=== PATIENT | male | born 1960 | race Two or more races ===

== ENCOUNTER 2025-08-18 05:54 | Inpatient (IN) | payer OTHER ==
[2025-08-18] VITALS (55 sets, daily range): BP systolic 87–154; BP diastolic 56–106; PULSE 92–122; RESP 8–34; TEMP 97.9–98.2; O2SAT 85–100
[~2025-08-18] VITALS: Ht 165.1 cm; Wt 81.4 kg
--- NOTE | 2025-08-18 06:24 | ED.PDOC ---
SOB-HPI HPI Comments 65 y/o M, BIBAiden, presents to the ED for CC of shortness of breath. EMS reports, patient is coming from home where he c/o shortness of breath x1day. Patient endorses, shortness of breath to worsen with light exertion. Upon arrival to the ED patient's O2 saturation is 98% on R.A and all VS are WNL, respirations are even and unlabored. At this time patient is hypotensive with a blood pressure of 92/69mmHg and BS is elevated at 356. Patient was transferred to ER bed 06 and care is ongoing at this time. Chief Complaint: Shortness of Breath Time Seen by MD: 06:24 Reviewed notes: Nurses Notes, [employer] Dealer Notes, Medications, Allergies Information Source: Patient, Emergency Med Personnel Mode of Arrival: EMS Severity: Moderate Timing: Days Duration: Since onset Context: With Light Exertion History of: None Prehospital treatment: None Modifying Factors: Nothing Associated Signs and Symptoms: None Past Medical History PAST MEDICAL HISTORY: Unknown Surgical History: Unknown Family History Family History: Unknown Social History Smoker: Non-Smoker Alcohol: Denies ETOH Use Drugs: Denies Drug Use Lives In: Home Constitutional: denies: chills, diaphoresis, fatigue, fever, malaise, sweats, weakness, others EENTM: denies: blurred vision, double vision, ear bleeding, ear discharge, ear drainage, ear pain, ear ringing, eye pain, eye redness, hearing loss, mouth kristine n, mouth swelling, nasal discharge, nose bleeding, nose congestion, nose pain, photophobia, tearing, throat pain, throat swelling, voice changes, others Respiratory: reports: shortness of breath; denies: cough, hemoptysis, orthopnea, SOB at rest, SOB with excertion, stridor, wheezing, others Cardiovascular: denies: chest pain, dizzy spells, diaphoresis, Dyspnea on exertion, edema, irregular heart beat, left arm pain, lightheadedness, palpitati ons, PND, syncope, others Gastrointestinal: denies: abdomen distended, abdominal pain, blood streaked bowels, constipated, diarrhea, dysphagia, difficulty swallowing, hematemesis, melena, nausea, poor appetite, poor fluid intake, rectal bleeding, rectal pain, vomiting, others Genitourinary: denies: burning, dysuria, flank pain, frequency, hematuria, incontinence, penile discharge, penile sore, pain, testicle pain, testicle swelling, urgency, others Neurological: denies: dizziness, fainting, headache, left sided numbness, left sided weakness, numbness, paresthesia, pre-existing deficit, right sided numbness, right sided weakness, seizure, speech problems, tingling, tremors, weakness, others Musculoskeletal: denies: back pain, gout, joint pain, joint swelling, muscle pain, muscle stiffness, neck pain, others Integumetry: denies: bruises, change in color, change in hair/nails, dryness, laceration, lesions, lumps, rash, wounds, others Allergic/Immunocompromised: denies: Difficulty Healing, Frequent Infections, Hives, Itching, others Hematologic/Lymphatic: denies: anemia, blood clots, easy bleeding, easy bruising, swollen glands, others Endocrine: denies: excessive hunger, excessive sweating, excessive thirst, excessive urination, flushing, intolerance to cold, intolerance to heat, unexplained weight gain, unexplained weight loss, others Psychiatric: denies: anxiety, bipolar disorder, depression, hopeless, panic disorder, schizophrenia, sleepless, suicidal, others All Other Systems: Reviewed and Negative Physical Exam General Appearance: Moderate Distress HEENT: Normal ENT Inspection, Pharynx Normal, TMs Normal Neck: Full Range of Motion, Non-Tender, Normal, Normal Inspection Respiratory: Chest Non-Tender, Lungs Clear, No Accessory Muscle Use, No Respiratory Distress, Normal Breath Sounds Cardiovascular: No Edema, No JVD, No Murmur, No Gallop, Normal Peripheral Pulses, Tachycardia Breast Exam: Deferred Gastrointestinal: No Organomegaly, Non Tender, No Pulsatile Mass, Normal Bowel Sounds, Soft Genitalia: Deferred Pelvic: Deferred Rectal: Deferred Extremities: No calf tenderness, Normal capillary refill, Normal inspection, Normal range of motion, Non-tender, No pedal edema Musculoskeletal : Apperance: Normal Neurologic: Alert, button puncher II-XII nml as Tested, No Motor Deficits, Normal Affect, Normal Mood, No Sensory Deficits Cerebellar Function: NOT DONE Reflexes: NOT DONE Skin: Dry, Normal Color, Warm Peripheral Pulses: 3+ Radial (R), 3+ Radial (L) Lymphatic: No Adenopathy Was a procedure done? Was a procedure done?: No Differential Dx Differential Diagnosis: Anxiety, Asthma, Bronchitis, CHF, COPD, Pneumonia, Sinusitis, Pharyngitis, URI X-Ray, Labs, Meds, VS Vital Signs Date Time Temp Pulse Resp B/P (MAP) Pulse Ox O2 Delivery O2 Flow Rate FiO2 08/18/25 09:10 104 25 91/63 (72) 95 08/18/25 08:56 106 08/18/25 08:10 103 24 91/67 (75) 95 08/18/25 07:47 107 08/18/25 07:10 96 Nasal Cannula* 2 08/18/25 07:10 98.0 106 25 99/69 (79) 96 98.0 08/18/25 07:10 106 25 96 Nasal Cannula* 2 08/18/25 07:10 25 96 Nasal Cannula* 2 08/18/25 06:53 108 92/69 (77) 08/18/25 06:26 98.1 112 22 92/69 (77) 97 98.1 08/18/25 06:26 114 22 95 Room Air* 0 21 08/18/25 06:03 98.9 68 18 100/68 98 98.9 08/18/25 05:59 111 Lab Test 08/18/25 08:30 08/18/25 08:11 08/18/25 06:37 Range/Units White Blood Count 13.8 H 4.4-10.8 10^3/uL Red Blood Count 5.16 4.5-5.90 10^6/uL Hemoglobin 17.0 13.5-17.5 g/dL Hematocrit 51.6 41.0-53.0 % Mean Corpuscular Volume 100.0 80.0-100.0 fL Mean Corpuscular Hemoglobin 33.0 H 28.0-32.0 pg Mean Corpuscular Hemoglobin Concent 33.0 32.0-36.0 g/dL Red Cell Distribution Width 13.6 11.8-14.3 % Platelet Count 191 140-450 10^3/uL Mean Platelet Volume 8.7 6.9-10.8 fL Neutrophils (%) (Auto) 84.4 H 37.0-80.0 % Lymphocytes (%) (Auto) 9.5 L 10.0-50.0 % Monocytes (%) (Auto) 5.7 0.0-12.0 % Eosinophils (%) (Auto) 0.0 0.0-7.0 % Basophils (%) (Auto) 0.4 0.0-2.0 % Neutrophils # (Auto) 11.7 H 1.6-8.6 10 ^3/uL Lymphocytes # (Auto) 1.3 0.4-5.4 10 ^3/uL Monocytes # (Auto) 0.8 0-1.3 10 ^3/uL Eosinophils # (Auto) 0 0-0.8 10 ^3/uL Basophils # (Auto) 0.1 0-0.2 10 ^3/uL Nucleated Red Blood Cells 0.0 % Prothrombin Time 14.0 H 9.3-11.8 sec Prothrombin Time INR 1.36 H 0.9-1.15 Activated Partial Thromboplast Time 26.8 24.5-34.5 SEC D-Dimer, Quantitative 1.35 H 0.0-0.49 mg/L FEU B-Type Natriuretic Peptide 963.53 0-100 pg/mL Sodium Level 136 136-145 mmol/L Potassium Level 5.6 *H 3.5-5.1 mmol/L Chloride Level 103 98-107 mmol/L Carbon Dioxide Level 10 L 20-31 mmol/L Anion Gap 23 H 5-15 Blood Urea Nitrogen 31 H 9-23 mg/dL Creatinine 2.90 H 0.700-1.30 mg/dL Glomerular Filtration Rate Calc 23 >90 mL/min BUN/Creatinine Ratio 10.7 10.0-20.0 Serum Glucose 339 H 74-106 mg/dL Calcium Level 8.8 8.7-10.4 mg/dL Troponin I High Sensitivity > 88138 *H </=54 ng/L Beta-Hydroxybutyric Acid 0.600 H < 0.4 mmol/L POC Glucose 356 H 70-106 mg/dl Current Medications Medications (Trade) Dose Ordered Sig/Letitia Route Start Time Stop Time Status Last Admin Sodium Chloride 1,000 ml @ 1,000 mls/hr Q1H ONCE IV 08/18/25 07:00 08/18/25 07:59 DC 08/18/25 06:52 Sodium Chloride 1,000 ml @ 1,000 mls/hr Q1H ONCE IV 08/18/25 07:00 08/18/25 07:59 DC 08/18/25 07:03 Sodium Chloride 1,000 ml @ 150 mls/hr Q6H40M ONCE IV 08/18/25 07:00 08/18/25 13:39 08/18/25 07:55 Insulin Human Regular (InsuLIN R) 3 units ONCE ONCE IV 08/18/25 07:00 08/18/25 07:02 DC 08/18/25 07:08 Heparin Sodium (Porcine) 5,000 units ONCE ONCE IV 08/18/25 09:00 08/18/25 09:01 DC 08/18/25 09:00 Atorvastatin Calcium (Lipitor) 80 mg ONCE ONCE PO 08/18/25 09:15 08/18/25 09:16 DC 08/18/25 09:14 Aspirin 325 mg ONCE ONCE PO 08/18/25 09:15 08/18/25 09:16 DC 08/18/25 09:14 Patient alert. Came in because of generalized fatigue. Vitals stable. Saturation pristine. Tachycardia. Establish intravenous access Was given fluids Blood sugar elevated. Was given insulin. No leg swelling. WBC elevated. Cardiac marker elevated. Beta hydroxybutyric acid elevated. Patient does not take care himself. He has been possibly having infarction for many weeks. He is very sick. Anion gap elevated. Potassium elevated. Creatinine elevated. Acute renal failure. He is critical. Explained to the family he is very sick. He will possibly going to shot. Was given Lasix. Was given calcium. Cardiology consultation for stat catheterization. Continue to monitor. Time of 1ST Reevaluation: 06:54 Reevaluation 1ST: Unchanged Patient Education/Counseling: Diagnosis, Treatment Family Education/Counseling: No Family Present SEPSIS Sepsis Screen Date sepsis recognized/suspect: Aug 18, 2025 Time Sepsis recognized/suspect: 0558 Recent Procedure: No On Antibiotic Therapy: No Respiratory Rate >20: No Heart Rate >90: No Temp<36 C (96.8 F) or >38.3 C: No SBP <90 or MAP <65 mmHG: No New Acute Mental Status Change: No Is the patient on CPAP, BIPAP,: No Physician Orders Sodium Chloride 0.9% (08/18/25 07:00) Chest Portable (08/18/25 09:02) Cl Left Heart Cath (08/18/25 09:24) Furosemide Injection (Lasix Injection) (08/18/25 09:45) Calcium Gluc 1,000mg/50ml-Ns (08/18/25 09:45) Vital Signs Date Time Temp Pulse Resp B/P (MAP) Pulse Ox O2 Delivery O2 Flow Rate FiO2 08/18/25 09:10 104 25 91/63 (72) 95 08/18/25 08:56 106 08/18/25 08:10 103 24 91/67 (75) 95 08/18/25 07:47 107 08/18/25 07:10 96 Nasal Cannula* 2 28 08/18/25 07:10 98.0 106 25 99/69 (79) 96 98.0 08/18/25 07:10 106 25 96 Nasal Cannula* 2 28 08/18/25 07:10 25 96 Nasal Cannula* 2 28 08/18/25 06:53 108 92/69 (77) 08/18/25 06:26 98.1 112 22 92/69 (77) 97 98.1 08/18/25 06:26 114 22 95 Room Air* 0 21 08/18/25 06:03 98.9 68 18 100/68 98 98.9 08/18/25 05:59 111 Laboratory Tests Test 08/18/25 08:30 White Blood Count 13.8 10^3/uL (4.4-10.8) H Medications Medications Dose Ordered Sig/Letitia Route Start Time Stop Time Status Last Admin Dose Admin Aspirin 325 mg ONCE ONCE PO 08/18/25 09:15 08/18/25 09:16 DC 08/18/25 09:14 Atorvastatin Calcium 80 mg ONCE ONCE PO 08/18/25 09:15 08/18/25 09:16 DC 08/18/25 09:14 Heparin Sodium (Porcine) 5,000 units ONCE ONCE IV 08/18/25 09:00 08/18/25 09:01 DC 08/18/25 09:00 Insulin Human Regular 3 units ONCE ONCE IV 08/18/25 07:00 08/18/25 07:02 DC 08/18/25 07:08 Sodium Chloride 1,000 ml @ 150 mls/hr Q6H40M ONCE IV 08/18/25 07:00 08/18/25 13:39 08/18/25 07:55 Sodium Chloride 1,000 ml @ 1,000 mls/hr Q1H ONCE IV 08/18/25 07:00 08/18/25 07:59 DC 08/18/25 06:52 Sodium Chloride 1,000 ml @ 1,000 mls/hr Q1H ONCE IV 08/18/25 07:00 08/18/25 07:59 DC 08/18/25 07:03 Departure 1 Departure Time of Disposition: 08:21 Impression: Primary Impression: Uncontrolled diabetes mellitus Qualified Codes: E13.65 - Other specified diabetes mellitus with hyperglycemia Additional Impressions: Tachycardia Hypotension Qualified Codes: I95.9 - Hypotension, unspecified NSTEMI (non-ST elevated myocardial infarction) Hyperkalemia Acute renal failure Qualified Codes: N17.1 - Acute kidney failure with acute cortical necrosis Disposition: ADMITTED INPATIENT Admit to: ICU Condition: Guarded Critical Care Note Critical Care Time?: Yes (90 min-critical care time only) Stability Stability form required: No Heart Score Heart Score: Heart Score Response (Comments) Value History Slightly Suspicious 0 EKG Normal 0 Age >65 2 Risk Factors >3 or Hx ASHD 2 Troponin >3 x's Normal limit 2 Total 6 I personally scribed for CROW HIRSCH MD ([email or web address]) on 08/18/25 at 06:24. Electronically submitted by Trudy Matias ([email or web address]). I personally scribed for CROW HIRSCH MD ([email or web address]) on 08/18/25 at 07:24. Electronically submitted by Trudy Matias [email or web address]). CROW HIRSCH MD Aug 18, 2025 06:24
[2025-08-18] MEDS: SODIUM CHLORIDE 0.9% 1,000 ML IV ONE ×3 (06:52→07:55)
[2025-08-18] MEDS: InsuLIN REG 1unit/0.01ml Soln (100units/ml) IV ONE (07:08)
--- NOTE | 2025-08-18 07:09 | ECG ---
[facility] Test Date: 2025-08-18 Test Time: 05:59:31 Pat Name: BRIGIDA SHAW Department: [facility] ED Patient ID: [facility]-[id number] Room: [address] [place] [address] Gender: M Territory Account Executive: : 1960 Requested By: CROW HIRSCH Order Number: [id number] Reading MD: Cedric Cordoba Measurements Intervals [place] Rate: 111 P: 0 [place]: 0 QRS: -74 QRSD: 153 T: 90 QT: 325 QTc: 442 Interpretive Statements Junctional tachycardia Nonspecific IVCD with LAD Electronically Signed On 08-22-2025 22:01:21 PDT by Cedric Cordoba Please click the below link to view image of tracing.
[2025-08-18 08:41] LABS: Anion Gap 23 (5-15); Chloride 103 mmol/L (98-107); Sodium 136 mmol/L (136-145)
[2025-08-18 08:42] LABS: Calcium 8.8 mg/dL (8.7-10.4)
[2025-08-18 08:46] LABS: Hematocrit 51.6 % (41.0-53.0); Hemoglobin 17.0 g/dL (13.5-17.5); Mean Corpuscular Hemoglobin 33.0 pg (28.0-32.0); Mean Corpuscular Volume 100.0 fL (80.0-100.0); Nucleated Red Blood Cells % 0.0 %
[2025-08-18 08:47] LABS: BUN/Creatinine Ratio 10.7 (10.0-20.0); Blood Urea Nitrogen 31 mg/dL (9-23); Carbon Dioxide 10 mmol/L (20-31); Glucose 339 mg/dL (74-106)
[2025-08-18 08:49] LABS: Potassium 5.6 mmol/L (3.5-5.1)
[2025-08-18] MEDS: HEPARIN SODIUM (PORCINE) 5000 UNITS/ML 1ML VIAL IV ONE (09:00)
[2025-08-18] MEDS: CLOPIDOGREL BISULFATE 75 MG TAB PO ONE (09:13)
[2025-08-18] MEDS: ATORVASTATIN 20 MG TAB PO ONE (09:14)
[2025-08-18 09:20] LABS: INR 1.36 (0.9-1.15); Partial Thromboplastin Time 26.8 SEC (24.5-34.5); Prothrombin Time 14.0 sec (9.3-11.8)
[2025-08-18] MEDS ORDERED: DEXTROSE (50%) 50ML SYRG IV PRN ×3 (09:30→11:30)
[2025-08-18] MEDS ORDERED: NITROGLYCERIN 0.4 MG SL TAB SL PRN ×5 (09:30→11:45)
[2025-08-18] MEDS ORDERED: MORPHINE SULFATE 4 MG/ML SYR/VIAL IV PRN (09:30)
--- NOTE | 2025-08-18 09:31 | DVH ---
AP portable chest CLINICAL INDICATION: chest pain FINDINGS: Heart size is normal. Pulmonary vascular markings are increased IMPRESSION: 1. Findings suggest pulmonary edema
[2025-08-18] MEDS: ANGIOMAX 250 MG VIAL IV ONE (09:33)
[2025-08-18] MEDS: fentaNYL CITRATE 100 MCG/2 ML VL ONE (09:34)
[2025-08-18] MEDS: VERAPAMIL 2.5MG/ML INJ 2ML VIAL IV ONE (09:34)
[2025-08-18] MEDS: MIDAZOLAM HCL 2MG/2ML 2ml VIAL (1mg/ml) ONE (09:34)
[2025-08-18] MEDS: LIDOCAINE 2%HCL (LOCAL ANESTH.) INJ 20ML MDV ONE (09:35)
[2025-08-18] MEDS: IODIXANOL 320MG/ML 100ML BTL IV ONE (09:35)
[2025-08-18] MEDS: SODIUM CHL 0.9% 50 ML ONE (09:35)
[2025-08-18] MEDS: FUROSEMIDE 20 MG/2 ML VIAL IV ONE (09:39)
[2025-08-18] MEDS: CALCIUM GLUC 1,000mg/50ml-NS 50 ML IV ONE (09:39)
--- NOTE | 2025-08-18 09:39 | ECG ---
[facility] Test Date: 2025-08-18 Test Time: 08:56:56 Pat Name: BRIGIDA SHAW Department: [facility] ED Patient ID: [id number] Room: [address] [place] [address] Gender: M Gemologist: AGNES : 1960 Requested By: MICHELLE VIGIL Order Number: [id number] Reading MD: Cedric Cordoba Measurements Intervals [place] Rate: 106 P: 0 [place]: 0 QRS: -65 QRSD: 151 T: 136 QT: 407 QTc: 541 Interpretive Statements Junctional tachycardia Nonspecific IVCD with LAD Borderline T abnormalities, lateral leads Electronically Signed On 08-22-2025 22:01:28 PDT by Cedric Cordoba Please click the below link to view image of tracing.
--- NOTE | 2025-08-18 09:47 | DVHHP2 ---
History of Present Illness Reason for Visit: weakness History of Present Illness 66-year-old English-speaking male with a past medical history of diabetes mellitus, hypertension, and prior ICU admission with intubation 34 years ago for an unclear condition (possibly after a bee sting, per son) presents with concern for cardiac symptoms and left-sided weakness. 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 Around 11 AM, he began sweating profusely and experienced sudden onset of left arm weakness, which progressed to generalized left-sided body weakness. Despite attempting to rest at home, his symptoms persisted. He remained mostly in bed throughout the day and began developing shortness of breath around the same time (11 AM). By 10 PM, he experienced increased difficulty breathing. His and son decided to bring him to the hospital for evaluation the following morning around 5 AM. The patient denied chest pain, cough, or fever but did report a sensation of chest pressure and pain that he described more like a muscle spasm. He experienced associated diaphoresis and fatigue during the episode. He also expressed concern due to a family history of multiple relatives including his siblings and grandmother who had heart attacks. The patient was unable to provide a complete history due to language barrier and altered condition; information was primarily obtained from his son. In the ED, the patient was noted to be hypotensive (BP 92/69) and tachycardic. Initial labs were significant for WBC 13.8, potassium 5.6, creatinine 2.90, glucose 339, and a markedly elevated troponin >25,000. EKG showed no STEMI but indicated conduction abnormalities (heart block). Given the clinical presentation, vital signs, family history, and elevated troponin, cardiology was consulted and the patient was taken emergently to the dental laboratory technician apprentice. Following the procedure, he will be admitted to [facility] for monitoring. A CT brain was ordered due to focal left arm weakness, and a VQ scan was requested due to elevated D-dimer. Renal consultation is also pending for management of acute kidney injury. Lipid panel, hemoglobin A1c, and other labs were sent. The patient is currently post-cath awaiting further management in the [facility]. Past Medical History See HPI above Past Surgical History See HPI above Family History Reviewed, non-contributory to the management of this case. Past Social History The patient lives at home, denies smoking, alcohol or illicit drugs abuse. Review of Systems Constitutional: Yes: Weakness; No: Fever, Chills, Sweats, Malaise, Other Eyes: No: Pain, Vision change, Conjunctivae inflammation, Eyelid inflammation, Other, Redness ENT: No: Ear pain, Ear discharge, Nose pain, Nose discharge, Nose congestion, Mouth pain, Mouth swelling, Throat pain, Throat swelling, Other Respiratory: Shortness of breath; No: Cough, Dry, SOB with excertion, Wheezing, Hemoptysis, Pleuritic Pain, Sputum, Wheezing, Other Cardiovascular: No: Chest Pain, Palpitations, Orthopnea, Paroxysmal Noc. Dyspnea, Edema, Lt Headedness, Other Gastrointestinal: No: Nausea, Vomiting, Abdominal Pain, Diarrhea, Constipation, Melena, Hematochezia, Other Genitourinary: No Dysuria, No Frequency, No Incontinence, No Hematuria, No Retention, No Other Musculoskeletal: No: other, neck pain, shoulder pain, arm pain, back pain, hand pain, leg pain, foot pain Skin: No: Rash, Lesions, Jaundice, Bruising, Other Neurological: Weakness; No: Numbness, Incoordination, Change in speech, Confusion, Seizures, Other Allergies: Coded Allergies: NO KNOWN ALLERGIES (Unverified , 08/18/25) Exam Vital Signs Vital Signs Date Time Temp Pulse Resp B/P (MAP) Pulse Ox O2 Delivery O2 Flow Rate FiO2 08/18/25 09:10 104 25 91/63 (72) 95 08/18/25 07:10 Nasal Cannula* 2 28 08/18/25 07:10 98.0 98.0 General Appearance: Alert, Oriented X3, mild distress HEENT: Atraumatic, PERRLA, EOMI, Mucous membr. moist/pink Respiratory: Other (Diminished lung sounds throughout) Cardiovascular: Regular rate, Normal S1, Normal S2, No murmurs Abdominal: Normal bowel sounds, Soft, No tenderness, No hepatospenomegaly, No masses Extremities: No clubbing, No cyanosis, No edema, Normal pulses, No ten derness/swelling Skin: No rashes, No breakdown, No significant lesion Neuro: Other (Neuro nonfocal) Psych/Mental Status: Mental status NL, Mood NL Labs/Xrays I reviewed labs, imaging CT scan abdomen pelvis, EKG and all diagnostic studies on this patient from ED records and the medical chart Labs Test 08/18/25 08:30 08/18/25 08:11 08/18/25 06:37 Range/Units White Blood Count 13.8 H 4.4-10.8 10^3/uL Red Blood Count 5.16 4.5-5.90 10^6/uL Hemoglobin 17.0 13.5-17.5 g/dL Hematocrit 51.6 41.0-53.0 % Mean Corpuscular Volume 100.0 80.0-100.0 fL Mean Corpuscular Hemoglobin 33.0 H 28.0-32.0 pg Mean Corpuscular Hemoglobin Concent 33.0 32.0-36.0 g/dL Red Cell Distribution Width 13.6 11.8-14.3 % Platelet Count 191 140-450 10^3/uL Mean Platelet Volume 8.7 6.9-10.8 fL Neutrophils (%) (Auto) 84.4 H 37.0-80.0 % Lymphocytes (%) (Auto) 9.5 L 10.0-50.0 % Monocytes (%) (Auto) 5.7 0.0-12.0 % Eosinophils (%) (Auto) 0.0 0.0-7.0 % Basophils (%) (Auto) 0.4 0.0-2.0 % Neutrophils # (Auto) 11.7 H 1.6-8.6 10 ^3/uL Lymphocytes # (Auto) 1.3 0.4-5.4 10 ^3/uL Monocytes # (Auto) 0.8 0-1.3 10 ^3/uL Eosinophils # (Auto) 0 0-0.8 10 ^3/uL Basophils # (Auto) 0.1 0-0.2 10 ^3/uL Nucleated Red Blood Cells 0.0 % Prothrombin Time 14.0 H 9.3-11.8 sec Prothrombin Time INR 1.36 H 0.9-1.15 Activated Partial Thromboplast Time 26.8 24.5-34.5 SEC D-Dimer, Quantitative 1.35 H 0.0-0.49 mg/L FEU B-Type Natriuretic Peptide 963.53 0-100 pg/mL Sodium Level 136 136-145 mmol/L Potassium Level 5.6 *H 3.5-5.1 mmol/L Chloride Level 103 98-107 mmol/L Carbon Dioxide Level 10 L 20-31 mmol/L Anion Gap 23 H 5-15 Blood Urea Nitrogen 31 H 9-23 mg/dL Creatinine 2.90 H 0.700-1.30 mg/dL Glomerular Filtration Rate Calc 23 >90 mL/min BUN/Creatinine Ratio 10.7 10.0-20.0 Serum Glucose 339 H 74-106 mg/dL Calcium Level 8.8 8.7-10.4 mg/dL Troponin I High Sensitivity > 80931 *H </=54 ng/L Beta-Hydroxybutyric Acid 0.600 H < 0.4 mmol/L POC Glucose 356 H 70-106 mg/dl SEPSIS Sepsis Screen Date sepsis recognized/suspect: Aug 18, 2025 Time Sepsis recognized/suspect: 628 Recent Procedure: No On Antibiotic Therapy: No Respiratory Rate >20: No Heart Rate >90: No Temp<36 C (96.8 F) or >38.3 C: No SBP <90 or MAP <65 mmHG: No New Acute Mental Status Change: No Is the patient on CPAP, BIPAP,: No Physician Orders Sodium Chloride 0.9% (08/18/25 07:00) Chest Portable (08/18/25 09:02) Cl Left Heart Cath (08/18/25 09:24) Furosemide Injection (Lasix Injection) (08/18/25 09:45) Calcium Gluc 1,000mg/50ml-Ns (08/18/25 09:45) Beta-Hydroxybutyrate (08/18/25 09:25) Glucose Blood (Accu-Chek Comfort Curve T (08/18/25 12:00) Mild Sliding Scale Npo - Q6hr (08/18/25 12:00) Dextrose 50% Syringe (08/18/25 09:30) *[facility] (08/18/25 09:25) Kidney (08/18/25 09:25) Nm Vq Scan (08/18/25:25) Head Without Contrast (08/18/25 09:25) Lipid Panel (08/18/25 09:25) Hemoglobin A1c (08/18/25 09:25) Admit (08/18/25 09:25) Code Status (08/18/25 09:25) Vital Signs .PER UNIT PROTOCOL (08/18/25 09:25) Employee Benefits Coordinator (08/18/25 09:25) May Elevate Hob ____ Degrees (08/18/25 09:25) Aspirin Tablet (08/18/25 10:00) Clopidogrel Bisulfate (Plavix) (08/18/25 10:00) Lipitor 40mg Hs Hi-Intensity (08/18/25 22:00) Morphine Sulfate Injection (08/18/25 09:30) Docusate Sodium Capsule (Colace Capsule) (08/18/25 10:00) Pulse Oximeter Check (08/18/25 09:25) Complete Blood Count (08/19/25 04:00) Complete Blood Count (08/18/25 04:00) Prothrombin Time W/ Inr (08/18/25:) Echo 2d Mode Cardiac Dop (08/18/25:25) Nitroglycerin Sublingual (Ntrostat Subli (08/18/25 09:30) Magnesium (08/18/25 09:25) Electrocardigram (08/18/25 09:25) Troponin-I Hs (08/18/25 09:25) Cardiac Rehabilitation - Outpa (08/18/25 ) Nitroglycerin Sublingual (Ntrostat Subli (08/18/25 09:30) Stat Ekg For Chest Pain (08/18/25:) Notify Of Changes From Base (08/18/25:25) Servicenow Administrator Developer For 24 Hours (08/18/25 09:25) Emergency Dysrhythmia Protocol (08/18/25 09:25) Rhythm Strips Once Every Shift (08/18/25 09:25) Oxygen By Nasal Cannula (08/18/25 09:25) Electrocardigram (08/18/25 10:25) Troponin-I Hs (08/18/25 10:25) Troponin-I Hs (08/18/25 12:25) Vital Signs Date Time Temp Pulse Resp B/P (MAP) Pulse Ox O2 Delivery O2 Flow Rate FiO2 08/18/25 09:10 104 25 91/63 (72) 95 08/18/25 08:56 106 08/18/25 08:10 103 24 91/67 (75) 95 08/18/25 07:47 107 08/18/25 07:10 96 Nasal Cannula* 2 28 08/18/25 07:10 98.0 106 25 99/69 (79) 96 98.0 08/18/25 07:10 106 25 96 Nasal Cannula* 2 28 08/18/25 07:10 25 96 Nasal Cannula* 2 28 08/18/25 06:53 108 92/69 (77) 08/18/25 06:26 98.1 112 22 92/69 (77) 97 98.1 08/18/25 06:26 114 22 95 Room Air* 0 21 08/18/25 06:03 98.9 68 18 100/68 98 98.9 08/18/25 05:59 111 Laboratory Tests Test 08/18/25 08:30 White Blood Count 13.8 10^3/uL (4.4-10.8) H Medications Medications Dose Ordered Sig/Letitia Route Start Time Stop Time Status Last Admin Dose Admin Aspirin 325 mg ONCE ONCE PO 08/18/25 09:15 08/18/25 09:16 DC 08/18/25 09:14 325 MG Atorvastatin Calcium 80 mg ONCE ONCE PO 08/18/25 09:15 08/18/25 09:16 DC 08/18/25 09:14 80 MG Heparin Sodium (Porcine) 5,000 units ONCE ONCE IV 08/18/25 09:00 08/18/25 09:01 DC 08/18/25 09:00 5,000 UNITS Insulin Human Regular 3 units ONCE ONCE IV 08/18/25 07:00 08/18/25 07:02 DC 08/18/25 07:08 3 UNITS Sodium Chloride 1,000 ml @ 150 mls/hr Q6H40M ONCE IV 08/18/25 07:00 08/18/25 13:39 08/18/25 07:55 150 MLS/HR Sodium Chloride 1,000 ml @ 1,000 mls/hr Q1H ONCE IV 08/18/25 07:00 08/18/25 07:59 DC 08/18/25 06:52 1,000 MLS/HR Sodium Chloride 1,000 ml @ 1,000 mls/hr Q1H ONCE IV 08/18/25 07:00 08/18/25 07:59 DC 08/18/25 07:03 1,000 MLS/HR Assessment/Plan Assessment/Plan Acute Coronary Syndrome (NSTEMI with possible heart block) trop elevated >57203, ekg no st segment changes seen pt to go to dental laboratory technician apprentice/Initiate CP protocol Cards consult stat DR. Bah/Halle cisneros at bedside will take to dental laboratory technician apprentice ordered Aspirin, atorvastatin, plavix by cards in er ordered nitro as needed for chest pain Oxygen as needed ordered heparin drip ordered Lipid panel,and hemoglobin a1c hold hypotensive agents since bp is low ordered echo fu results Lifestyle modification ordered morphine as needed for pain Admit to [facility] for post-procedure monitoring Telemetry, serial troponins, EKGs Cardiology to follow acute Hypotension BP 92/69 on arrival Monitor MAP, ensure adequate perfusion post-cath Consider fluids or vasopressors if needed Acute Kidney Injury Creatinine 2.90 Renal consult requested Monitor renal function, avoid nephrotoxic meds Hydration protocol post-cath acute Hyperkalemia K 5.6 Monitor BMP, treat if rises further consider Kayexalate, insulin/dextrose if needed Check for EKG changes acute Hyperglycemia / Diabetes r/o dka Glucose 339 HbA1c pending and beta OH Start sliding scale insulin Monitor FSBS q6h for now while npo acute Left-Sided Weakness Sudden onset left arm and body weakness during event CT brain ordered to r/o acute stroke Neuro exam to be done post-cath acute Leukocytosis can be acute phase reactant WBC 13.8 Monitor for infection No clear source identified at this time Blood cultures if febrile Language Barrier / Communication Support English-speaking only Communication via son Shyam Mtz Consider box toe cementer services for direct patient communication chronic problems Diabetes mellitus Hypertension Prior intubation / ICU stay (status-post mechanical ventilation) Family history of CAD FEN / PPx: Fluids: IV hydration post-cath; monitor volume status Electrolytes: Monitor BMP QAM, replete as needed Nutrition: cardiac diabetic diet when cleared for PO intake DVT Prophylaxis: SCDs or pharmacologic prophylaxis if no bleeding risk GI Prophylaxis: PPI for stress ulcer prevention DISPOSITION: Admit to [facility] for post-cardiac catheterization monitoring Plan discussed with: Patient, Son My Orders Orders - MICHELLE VIGIL DNP Procedure Category Date Status Time Beta-Hydroxybutyrate LAB 08/18/25 Verified 09:25 Glucose Blood PHA 08/18/25 Verified (Accu-Chek Comfort 12:00 Mild Sliding Scale PHA 08/18/25 Verified Npo - Q6hr 12:00 Dextrose 50% Syringe PHA 08/18/25 Verified 09:30 *[facility] CONS 08/18/25 Verified -[place] 09:25 Kidney US 08/18/25 Verified 09:25 Nm Vq Scan NM 08/18/25 Verified 09:[address] 08/18/25 Verified 09:25 Lipid Panel LAB 08/18/25 Verified 09:25 Hemoglobin A1c LAB 08/18/25 Verified 09:25 Admit ADMIT 08/18/25 Verified 09: Code Status CODE 08/18/25 Verified 09:25 Vital Signs [facility] 08/18/25 Verified 09:25 Employee Benefits Coordinator [facility] 08/18/25 Verified 09:25 May Elevate Hob ____ ARIE 08/18/25 Verified Degrees 09:25 Aspirin Tablet PHA 08/18/25 Verified 10:00 Clopidogrel Bisulfate PHA 08/18/25 Verified (Plavix) 10:00 Lipitor 40mg Hs PHA 08/18/25 Verified Hi-Intensity 22:00 Morphine Sulfate PHA 08/18/25 Verified Injection 09:30 Docusate Sodium PHA 08/18/25 Verified Capsule (Colace 10:00 Pulse Oximeter Check RT 08/18/25 Verified 09:25 Complete Blood Count LAB 08/19/25 Verified 04:00 Complete Blood Count LAB 08/18/25 Verified 04:00 Prothrombin Time W/ LAB 08/18/25 Verified INR 09:25 Echo 2d Mode Cardiac US 08/18/25 Verified DOP 09:25 Nitroglycerin PHA 08/18/25 Verified Sublingual (Ntrostat 09:30 Magnesium LAB 08/18/25 Verified 09:25 Electrocardigram EKG 08/18/25 Verified 09:25 Troponin-I Hs LAB 08/18/25 Verified 09:25 Cardiac ARIE 08/18/25 Verified Rehabilitation - Outpa Nitroglycerin PHA 08/18/25 Verified Sublingual (Ntrostat 09:30 Stat Ekg For Chest [facility] 08/18/25 Verified Pain 09:25 Notify Of Changes [facility] 08/18/25 Verified From Base 09:25 Servicenow Administrator Developer For [facility] 08/18/25 Verified 24 Hours 09:25 Emergency Dysrhythmia [facility] 08/18/25 Verified Protocol 09:25 Rhythm Strips Once [facility] 08/18/25 Verified Every Shift 09:25 Oxygen By Nasal RT 08/18/25 Verified Cannula 09:25 Electrocardigram EKG 08/18/25 Verified 10:25 Troponin-I Hs LAB 08/18/25 Verified 10:25 Troponin-I Hs LAB 08/18/25 Verified 12:25 Date of Service: Aug 18, 2025 Billing Provider: MICHELLE VIGIL DNP Common Visit Codes: [id number] INP/OBS CARE (HIGH), [id number] CARE 30- 74 MIN (Total critical care time: Approximately 45 minutes This critical care time included obtaining a history; examining the patient; pulse oximetry; ordering and review of studies; arranging urgent treatment with development of a management plan; evaluation of patient's response to treatment; frequent reassessment; and, discussions with other providers.) MICHELLE VIGIL DNP Aug 18, 2025 09:47
[2025-08-18] MEDS ORDERED: CLOPIDOGREL BISULFATE 75 MG TAB PO SCH ×2 (10:00→10:15)
[2025-08-18] MEDS ORDERED: DOCUSATE SOD 100 MG CAP PO SCH (10:00)
[2025-08-18] MEDS: NOREPINEPHRINE 8 MG/250ML KIT 250 ML IV ONE (10:19)
[2025-08-18] MEDS: SODIUM BICARB 8.4% 50Meq/50ml SYR Vial IV ONE ×2 (10:19→10:20)
[2025-08-18] MEDS: ATROPINE SULF 1 MG/10ml SYR ONE (10:39)
[2025-08-18 10:46] LABS: Triglycerides 123 mg/dL (< 150)
[2025-08-18 10:48] LABS: HDL Cholesterol 60 mg/dL (40-59)
[2025-08-18] MEDS: HEPARIN DRIP/D5W 100UNITS/ML 250 ML IV ONE (10:49)
[2025-08-18 10:51] LABS: Cholesterol 218 mg/dL (< 200)
[2025-08-18 10:58] LABS: Base Excess -6.1 mmol/L (-2.0-3.0)
--- NOTE | 2025-08-18 11:36 | DVHINCON2 ---
Date of service: Aug 18, 2025 Referring Physician Albina Davison NP Reason for Consultation Acute kidney injury History of Present Illness Mr. Sexton is a 65-year-old [place] male who presented for further evaluation and management of dyspnea and left arm symptoms. His workup at [facility] notable for elevated serum creatinine, hyperkalemia, metabolic acidosis and significantly elevated initial troponin. He underwent emergent left heart catheterization or working diagnosis of acute MA. he is seen in the ICU, he is awake responsive, he is on IABP support. Nephrology consultation requested to evaluate kidney dysfunction. Medical history notable for diabetes, hypertension. Past Medical History Diabetes Hypertension Dyslipidemia Allergies: Coded Allergies: NO KNOWN ALLERGIES (Unverified , 08/18/25) Current Medications Current Medications Medications (Trade) Dose Ordered Sig/Letitia Route PRN Reason Start Time Stop Time Status Last Admin Diagnostic Test (Pha) (Accu-Chek Comfort Curve T) 1 strip Q6HR 08/18/25 12:00 08/18/25 09:41 DC Insulin Human Regular (InsuLIN R) Q6HR SC 08/18/25 12:00 08/18/25 09:41 DC Dextrose 50 ml UD PRN IV Blood Sugar LESS THAN 60 08/18/25 09:30 08/18/25 09:41 DC Aspirin 81 mg DAILY PO 08/18/25 10:00 08/18/25 09:41 DC Clopidogrel Bisulfate (Plavix) 75 mg DAILY PO 08/18/25 10:00 08/18/25 09:41 DC Atorvastatin Calcium (Lipitor) 40 mg HS PO 08/18/25 22:00 08/18/25 09:41 DC Morphine Sulfate 2 mg Q30MP PRN IV FOR CHEST PAIN 08/18/25 09:30 08/18/25 09:41 DC Docusate Sodium (Colace Capsule) 100 mg DAILY PO 08/18/25 10:00 08/18/25 09:41 DC Nitroglycerin (Ntrostat Sublingual) 0.4 mg Q5MINP PRN SL FOR CHEST PAIN 08/18/25 09:30 08/18/25 09:41 DC Nitroglycerin (Ntrostat Sublingual) 0.4 mg Q5MINP PRN SL FOR CHEST PAIN 08/18/25 09:30 08/18/25 09:41 DC Insulin Human Regular (InsuLIN R) Q6HR SC 08/18/25 12:00 Dextrose 50 ml UD PRN IV Blood Sugar LESS THAN 60 08/18/25 09:45 Morphine Sulfate 2 mg Q30MP PRN IV FOR CHEST PAIN 08/18/25 09:45 Aspirin 81 mg DAILY PO 08/18/25 10:15 Clopidogrel Bisulfate (Plavix) 75 mg DAILY PO 08/18/25 10:15 Atorvastatin Calcium (Lipitor) 40 mg HS PO 08/18/25 22:00 Docusate Sodium (Colace Capsule) 100 mg DAILY PO 08/18/25 10:15 Nitroglycerin (Ntrostat Sublingual) 0.4 mg Q5MINP PRN SL FOR CHEST PAIN 08/18/25 09:45 Nitroglycerin (Ntrostat Sublingual) 0.4 mg Q5MINP PRN SL FOR CHEST PAIN 08/18/25 09:45 08/18/25 10:24 DC Diagnostic Test (Pha) (Accu-Chek Comfort Curve T) 1 strip Q6HR 08/18/25 12:00 08/18/25 11:28 DC Insulin Human (Reg)/Sodium Chloride 100 ml @ 0.5 mls/hr Q24H IV 08/18/25 11:30 UNV Dextrose 50 ml UD PRN IV SEE CURRENT ALGORITHM or SCALE 08/18/25 11:30 UNV Diagnostic Test (Pha) (Accu-Chek Comfort Curve T) 1 strip Q90MIN 08/18/25 12:00 UNV Review of Systems Unable to be obtained currently. H&P Exam Vital Signs/I&O Vital Sign Date Time Temp Pulse Resp B/P (MAP) Pulse Ox O2 Delivery O2 Flow Rate FiO2 08/18/25 09:39 91/63 08/18/25 09:10 104 25 95 08/18/25 07:10 Nasal Cannula* 2 28 08/18/25 07:10 98.0 98.0 Physical Exam Gen: nad, supine, no acute distress heent: nc/at, mmm lungs: cta anteriorly cvs: Regular rhythm abd: soft, bowel sounds audible ext: No significant edema, insertion for IABP noted skin: no rash neuro: alert and oriented Labs/Diagnostic Data Labs/Diagnostic Data Laboratory Tests Test 08/18/25 10:42 08/18/25 08:30 08/18/25 08:11 08/18/25 06:37 Range/Units Blood Gas Specimen Type Arterial Blood Gas Sample Site Arterial line Blood Gas Patient Temperature 37.0 Arterial Blood Date Drawn [id number] Arterial Blood pH 7.455 H 7.350-7.450 Arterial Blood Partial Pressure CO2 22.3 L 35.0-48.0 mmHg Arterial Blood Partial Pressure O2 59.2 L 83.0-108.0 mmHg Arterial Blood HCO3 15.3 L 21.0-28.0 mmol/L Arterial Blood Oxygen Saturation 88.6 L 94.0-98.0 % Arterial Blood Base Excess -6.1 L -2.0-3.0 mmol/L Arterial Blood Oxyhemoglobin 87.8 L 94.0-98.0 % Arterial Blood Carboxyhemoglobin 0.8 0.5-1.5 % Arterial Blood Methemoglobin 0.1 0.0-1.5 % Shawn Test N/a Blood Gas Total Hemoglobin 15.60 13.5-17.5 g/dL Blood Gas Liter Flow 6.00 Blood Gas Modality Nasal cannula FiO2 % 44.0 White Blood Count 13.8 H 4.4-10.8 10^3/uL Red Blood Count 5.16 4.5-5.90 10^6/uL Hemoglobin 17.0 13.5-17.5 g/dL Hematocrit 51.6 41.0-53.0 % Mean Corpuscular Volume 100.0 80.0-100.0 fL Mean Corpuscular Hemoglobin 33.0 H 28.0-32.0 pg Mean Corpuscular Hemoglobin Concent 33.0 32.0-36.0 g/dL Red Cell Distribution Width 13.6 11.8-14.3 % Platelet Count 191 140-450 10^3/uL Mean Platelet Volume 8.7 6.9-10.8 fL Neutrophils (%) (Auto) 84.4 H 37.0-80.0 % Lymphocytes (%) (Auto) 9.5 L 10.0-50.0 % Monocytes (%) (Auto) 5.7 0.0-12.0 % Eosinophils (%) (Auto) 0.0 0.0-7.0 % Basophils (%) (Auto) 0.4 0.0-2.0 % Neutrophils # (Auto) 11.7 H 1.6-8.6 10 ^3/uL Lymphocytes # (Auto) 1.3 0.4-5.4 10 ^3/uL Monocytes # (Auto) 0.8 0-1.3 10 ^3/uL Eosinophils # (Auto) 0 0-0.8 10 ^3/uL Basophils # (Auto) 0.1 0-0.2 10 ^3/uL Nucleated Red Blood Cells 0.0 % Prothrombin Time 14.0 H 9.3-11.8 sec Prothrombin Time INR 1.36 H 0.9-1.15 Activated Partial Thromboplast Time 26.8 24.5-34.5 SEC D-Dimer, Quantitative 1.35 H 0.0-0.49 mg/L FEU Hemoglobin A1c 6.9 H <5.7 % A1C Magnesium Level 2.2 1.6-2.6 mg/dL B-Type Natriuretic Peptide 963.53 0-100 pg/mL Triglycerides Level 123 < 150 mg/dL Cholesterol Level 218 H < 200 mg/dL LDL Cholesterol 153 H < 100 mg/dL HDL Cholesterol 60 H 40-59 mg/dL Sodium Level 136 136-145 mmol/L Potassium Level 5.6 *H 3.5-5.1 mmol/L Chloride Level 103 98-107 mmol/L Carbon Dioxide Level 10 L 20-31 mmol/L Anion Gap 23 H 5-15 Blood Urea Nitrogen 31 H 9-23 mg/dL Creatinine 2.90 H 0.700-1.30 mg/dL Glomerular Filtration Rate Calc 23 >90 mL/min BUN/Creatinine Ratio 10.7 10.0-20.0 Serum Glucose 339 H 74-106 mg/dL Calcium Level 8.8 8.7-10.4 mg/dL Troponin I High Sensitivity > 88767 *H </=54 ng/L Beta-Hydroxybutyric Acid 0.600 H < 0.4 mmol/L POC Glucose 356 H 70-106 mg/dl Assessment IMP: 1) Hemodynamically mediated NEGRO/VMN in setting of acute MA 2) hyperkalemia 3) acute MA , currently on IABP support 4) metabolic acidosis 5) history of diabetes REC: - IV fluids as cardiopulmonary status permits - we will repeat renal panel to closely monitor serum potassium and acidosis -we will continue to follow closely along with you. Thank you for the consultation. Plan discussed with: Other LAYNE ESPINOSA MD Aug 18, 2025 11:36
[2025-08-18] MEDS: HEPARIN DRIP/D5W 100UNITS/ML 250 ML IV SCH (11:45)
--- NOTE | 2025-08-18 11:47 | DVHOP ---
DATE OF SURGERY: 08/18/2025 OPERATING PHYSICIAN: Dr. Gerald Bah. PREOPERATIVE DIAGNOSIS: High-risk non-STEMI shock. POSTOPERATIVE DIAGNOSES: Multivessel CAD, high-risk non-STEMI shock. PROCEDURES PERFORMED: Selective coronary angiogram, left heart catheterization, conscious sedation administration and supervision less than 15 minutes, as well as 15-30 minutes fluoroscopy use and interpretation, ultrasound-guided vascular access of the right radial artery and placement of a sheath, ultrasound-guided vascular access of the right common femoral artery and placement of intraaortic balloon pump, ultrasound-guided vascular access of the right common femoral vein and placement of a venous sheath CVC catheter. DESCRIPTION OF PROCEDURE: The patient signed informed consent understanding the risks, benefits, and alternatives of procedure and wished to proceed. He was brought to the recyclable products sorter in [place] state. He was prepped in sterile fashion. Sedation was used per cardiac cath protocol. I administered 1 mL of 2% lidocaine in his right wrist. With an antegrade flow wall puncture using microaccess and ultrasound guidance, I cannulated the right radial artery. This vessel was patent seen on the ultrasound. The patient had a very thready pulse as he was likely in significant shock. Blood pressure was about 90s-100 systolic during the initiation of the procedure. A 6-[place] sheath was placed and intra-arterial spasmolytic was administered. Next, an angiogram was performed. This showed a small left main with diffuse distal plaquing and bifurcation in an LAD and circumflex. LAD was completely occluded from the ostium. There was collateral flow to the proximal LAD from the RPL branch. Next, circumflex proximally in the ostium has a 70% lesion. The proximal mid circumflex has an 80%-90% lesion, and then the mid circumflex had another 80%-90% lesion, with an OM distal target. Next, RCA proximally had a 50%-60% stenosis. The mid RCA is a very large vessel and the dominant vessel of the heart, giving off the distal RCA that is patent. The distal RCA gives off a PDA that is fairly small and a very large RPL branch. RPL branch proximally is patent. The mid portion has a bifurcating lesion of about 90%-95%. After that lesion, the more superior branch gives collateral flow to that LAD. At this point, the patient has critical multivessel CAD and appears to be in shock at this point. An LV pressure showed an LVEDP of 20 mmHg. There was a very narrow pulse pressure to begin with on his cardiac catheterization along with hypoxia. At this point, it was decided to place, with ultrasound guidance and 8 mL of 2% lidocaine to the groin, I placed a right common femoral artery sheath 6-[place]ican after showing patency of the right common femoral artery. There was a patent right common femoral vein and I placed a 6-[place] sheath and then I switched that out for a triple-lumen catheter. Then, over the 6-[place] arterial sheath, I switched out to an 8-[place] sheath and placed a 50 mL intraaortic balloon pump into the thoracic aorta distal to the touchdown of the subclavian. This was sutured into place. There were no immediate complications. Heparin was started. CONCLUSION: * Critical multivessel CAD. * Placement of intra-aortic balloon pump. * Placement of triple lumen catheter. PLAN: Check a stat echo for the patient. Heparinize the patient at this point. Levophed. Nephrology consult. Pulmonary consult for further evaluation. The patient will ultimately need to be transferred to a higher level of care for shock treatment and options for further therapy. I discussed this at length with the patient's son, explaining the patient is in critical condition, severely ill with multi-organ failure. Gerald Bah MD CM/[place] TID: [id number] RECEIPT: [id number]
--- NOTE | 2025-08-18 11:59 | DVHINCON2 ---
DATE OF CONSULTATION: 08/18/2025 CARDIOLOGY CONSULTATION REASON FOR CONSULTATION: Cardiogenic shock, non-STEMI. CONSULTING PHYSICIAN: Dr. Gerald Bah. REFERRING PHYSICIAN: ER. HISTORY OF PRESENT ILLNESS: The patient is a 65-year-old gentleman with a history of diabetes that is uncontrolled, hypertension, and hyperlipidemia. He has come in with generalized weakness. He was seen by the ER provider. An EKG was done showing an IVCD with ST nonspecific changes. The patient was also hypotensive. At one point, __roger __ assessed the patient. At that point, his troponin came back at 25,000 with creat 2.9 and hyperkalemia. I was consulted for emergency cath. I did recommend to call this a high-risk non-STEMI as the patient appears to have a septal infarct with repolarization abnormalities, to rule out apical aneurysm with hypotension. The patient on presentation in the ER is talking, having mainly weakness, no chest pain, and no obvious shortness of breath. Prior to cath, his potassium came back at 5.6 and creatinine came back markedly elevated at 2.9. The patient appears to be in shock as well. PAST MEDICAL HISTORY: As stated above. ALLERGIES: None. SOCIAL HISTORY: No tobacco, alcohol or illicits. PHYSICAL EXAMINATION: VITAL SIGNS: Heart rate is 104, blood pressure was 90s/60s, respiratory rate was about 25, pulse ox was 93-94% on 4 liters. GENERAL: The patient was an elderly male in no significant distress. HEENT: Head is normocephalic, atraumatic. ENT, dry mucous membranes. NECK: Supple. CARDIOVASCULAR: S1, S2, mildly tachycardic. LUNGS: Diffuse rhonchi. ABDOMEN: Soft and nontender. LOWER EXTREMITIES: No significant edema. The pulses were very thready and weak. LABS: Potassium 5.6, creatinine 2.9, glucose 356, calcium 8.8. Troponin greater than 25,000. Hemoglobin is 17.0, platelets 191. ASSESSMENT: * Cardiogenic shock. * Rule out DKA versus HHNK. * Rule out acidemia. * Kidney failure. * Hyperkalemia. * Renal failure. * Multi-organ failure. * Shock. * Tachycardia. * Diabetes. PLAN: The patient is in critical condition. At this point, I would recommend an urgent cardiac catheterization to delineate his coronary artery anatomy and possible intervention. Also, the patient may need balloon pump support as he is severely acidemic. Heparin was given in the ER. The patient will likely need to be admitted to the ICU. Further recommendations will follow the patient's clinical course. 90 minutes of critical care time was spent. Gerlad Bah MD CM/EKT/[place] TID: [id number] RECEIPT: [id number] [facility]
[2025-08-18] MEDS ORDERED: ACCU-CHEK COMFORT CURVE STRIP VI SCH ×2 (12:00)
[2025-08-18] MEDS ORDERED: InsuLIN REG 1unit/0.01ml Soln (100units/ml) SC SCH ×2 (12:00)
--- NOTE | 2025-08-18 12:22 | DVH ---
AP portable chest CLINICAL INDICATION: IABP INSERTION Comparison: Earlier film of the same date FINDINGS: IABP clips seen at the junction of the aortic arch and proximal descending aorta . Heart s ize is enlarged. Pulmonary vascular markings are engorged IMPRESSION: 1. IABP clip position as described 2. Worsening pulmonary edema compared to earlier film of the same date.
--- NOTE | 2025-08-18 13:20 | DVHPN2 ---
Progress Note Date Seen: Aug 18, 2025 Medical Necessity Reason Pt with a Central, PICC or Fol: No Objective vital signs Vital Sign Date Time Temp Pulse Resp B/P (MAP) Pulse Ox O2 Delivery O2 Flow Rate FiO2 08/18/25 09:39 91/63 08/18/25 09:10 104 25 95 08/18/25 07:10 Nasal Cannula* 2 28 08/18/25 07:10 98.0 98.0 medications Current Medications Medications Dose Ordered Sig/Letitia Route Start Time Stop Time Status Last Admin Dose Admin Insulin Human Regular Q6HR SC 08/18/25 12:00 Hold Morphine Sulfate 2 mg Q30MP PRN IV 08/18/25 09:45 Aspirin 81 mg DAILY PO 08/18/25 10:15 Clopidogrel Bisulfate 75 mg DAILY PO 08/18/25 10:15 Atorvastatin Calcium 40 mg HS PO 08/18/25 22:00 Docusate Sodium 100 mg DAILY PO 08/18/25 10:15 Insulin Human (Reg)/Sodium Chloride 100 ml @ 0.5 mls/hr Q24H IV 08/18/25 11:30 Dextrose 50 ml UD PRN IV 08/18/25 11:30 Diagnostic Test (Pha) 1 strip Q90MIN 08/18/25 12:00 Nitroglycerin 0.4 mg Q5MINP PRN SL 08/18/25 11:45 laboratory and microbiology Laboratory Tests 08/18/25 08:30 08/18/25 08:11 Test 08/18/25 08:11 Range/Units Serum Glucose 339 H 74-106 mg/dL Problem List/Assessment/Plan Problem List/Assessment/Plan shock i spoke to son and pt at length lvef <10% at this time, lactate bmp is still pending iv lasix ordered, pending alanis in place renal and pulm consult placed recommend tx to higher level of center, SW consult and admitting hospitalist aware very guarded /poor prognosis Plan discussed with: Patient, Son My Orders My Orders Orders - LISA LEI MD Procedure Category Date Status Time Cl Left Heart Cath CL 08/18/25 Taken 09:24 Abg W/ Co-Ox RT 08/18/25 Logged 10:35 Chest Xray 1 View XY 08/18/25 Resulted 11:10 Insert Alanis Catheter ARIE 08/18/25 In Process 11:10 *Dr. Ash Galvez CONS 08/18/25 Transmitted -[place] 11:30 *Consult CONS 08/18/25 Verified 11:30 Lactate Dehydrogenase LAB 08/18/25 Logged 11:31 Basic Metabolic Panel LAB 08/18/25 Logged 11:31 Alanis Catheters ED NURSING 08/18/25 Transmitted Communication Order ORDERS 08/18/25 Transmitted 12:42 Mrsa Screen ADRIANNA 08/18/25 Logged 13:07 Urine Bacterial ADRIANNA 08/18/25 Logged Culture 13:07 Date of Service: Aug 18, 2025 Billing Provider: LISA LEI MD Common Visit Codes: NOT BILLABLE LISA LEI MD Aug 18, 2025 13:20
[2025-08-18] MEDS: FUROSEMIDE 100 MG/10ML VIAL IV ONE (13:26)
--- NOTE | 2025-08-18 13:27 | DVHSR ---
APPROVED REPORT EXAM: Two-dimensional and M-mode echocardiogram with Doppler and color Doppler. Blood Pressure: 91/63 mmHg INDICATION Chest Pain RISK FACTORS Height: 5'5", Weight: 150 DIMENSIONS LVDd5.9 (3.8-5.7cm)LA (2D)3.2 (1.9-4.0cm)Aortic Root3.1 (2.0-3.7cm) LVDs5.7 (2.5-4.0cm)LA (MM) (1.9-4.0cm)Aortic Cusp Exc1.8 (1.5-2.0cm) EF (%) 12.0 (55-70%)Rt. Atrium3.6 (1.9-4.0cm)Asc. Aorta cm IVSd1.1 (0.7-1.1cm)RV (D) (1.8-2.4cm) PWd1.0 (0.7-1.1cm) Mitral Valve MitralMitral Stenosis E wave0.34m/sMV Mean GR.mmHg A wave0.76m/sMV Peak GR.mmHg E/A ratio0.42D MVAcm2 DECEL [id number] 1/2 Timems Aortic Valve Aortic ValveAortic Stenosis V10.54m/Missael Mean GR.3mmHg V21.16m/Missael Peak GR.5mmHg LVOT Diameter2.1 (1.8-2.4cm)Doppler AVA1.61cm2 Tricuspid Valve TR Velocity2.39m/s [id number] Other Information Technically limited study due to body habitus, patient lying flat on balloon pump. Conclusion lvef 10% by visual estimate dilated LV akinetic apex, anterior wall, septum RV low normal function mild left atrium enlarged mild aortic regurg mild mitral regurg noted central , could be underestimated mild tricuspid regurg
[2025-08-18] MEDS: ACCU-CHEK COMFORT CURVE STRIP VI SCH (13:32)
[2025-08-18] MEDS: INSULIN DRIP 100 UNIT/100ML 100 ML IV SCH (13:32)
[2025-08-18 14:05] LABS: Chloride 103 mmol/L (98-107); Potassium 5.0 mmol/L (3.5-5.1)
[2025-08-18 14:06] LABS: Anion Gap 14 (5-15)
[2025-08-18 14:11] LABS: BUN/Creatinine Ratio 16.2 (10.0-20.0)
[2025-08-18 14:12] LABS: Urine Protein, UAD 1+ (Negative)
[2025-08-18 14:12] LABS: Magnesium 2.0 mg/dL (1.6-2.6)
--- NOTE | 2025-08-18 14:14 | DVH ---
US KIDNEY HISTORY: eval for acute renal failure COMPARISON: None TECHNIQUE: Transverse and longitudinal grayscale and color doppler images were obtained of the kidney s and bladder. FINDINGS: Right kidney: Size: 10.7 cm Cortical thickness: Normal Echogenicity: Normal Stones: None Masses: None Hydronephrosis: None Ureters: Not well visualized. Other: None Left kidney: Size: 10.3 cm Cortical thickness: Normal Echogenicity: Normal Stones: None Masses: None Hydronephrosis: None Ureters: Not well visualized. Other: None Bladder: Normal Other: None. IMPRESSION: Unremarkable renal ultrasound.
[2025-08-18 14:17] LABS: Blood Urea Nitrogen 45 mg/dL (9-23); Calcium 8.3 mg/dL (8.7-10.4); Carbon Dioxide 19 mmol/L (20-31); Glucose 297 mg/dL (74-106); Sodium 136 mmol/L (136-145)
[2025-08-18] MEDS: NOREPINEPHRINE 8 MG/250ML KIT 250 ML IV SCH (14:56)
[2025-08-18 15:04] LABS: Hematocrit 45.7 % (41.0-53.0); Hemoglobin 15.7 g/dL (13.5-17.5); Mean Corpuscular Hemoglobin 33.0 pg (28.0-32.0); Mean Corpuscular Volume 96.4 fL (80.0-100.0); Nucleated Red Blood Cells % 0.0 %
[2025-08-18 15:29] LABS: INR 1.36 (0.9-1.15); Prothrombin Time 14.0 sec (9.3-11.8)
[2025-08-18 15:43] LABS: INR 1.36 (0.9-1.15); Partial Thromboplastin Time 67.2 SEC (24.5-34.5); Prothrombin Time 14.0 sec (9.3-11.8)
[2025-08-18 17:02] LABS: Lactic Acid w/Reflex 4.8 mmol/L (0.4-2.0)
[2025-08-18] MEDS ORDERED: SIMV-268 PO (17:03)
[2025-08-18] MEDS ORDERED: METF-370 PO (17:04)
[2025-08-18 17:21] LABS: Base Excess -4.2 mmol/L (-2.0-3.0)
[2025-08-18] MEDS ORDERED: FUROSEMIDE 40 MG/4 ML VIAL IV SCH (18:00)
[2025-08-18 20:28] LABS: Potassium 3.8 mmol/L (3.5-5.1); Sodium 139 mmol/L (136-145)
[2025-08-18 20:29] LABS: Anion Gap 14 (5-15)
[2025-08-18 20:34] LABS: BUN/Creatinine Ratio 21.0 (10.0-20.0)
[2025-08-18 20:36] LABS: Blood Urea Nitrogen 42 mg/dL (9-23); Calcium 8.3 mg/dL (8.7-10.4); Carbon Dioxide 18 mmol/L (20-31); Chloride 107 mmol/L (98-107); Glucose 148 mg/dL (74-106)
[2025-08-18] MEDS: ATORVASTATIN 20 MG TAB PO SCH (21:31)
[2025-08-18] MEDS: FUROSEMIDE 40 MG/4 ML VIAL IV SCH (21:31)
[2025-08-18 21:45] LABS: INR 1.36 (0.9-1.15); Partial Thromboplastin Time 59.3 SEC (24.5-34.5); Prothrombin Time 14.0 sec (9.3-11.8)
[2025-08-18] MEDS ORDERED: ATORVASTATIN 20 MG TAB PO SCH (22:00)
[2025-08-18] MEDS ORDERED: hydrALAZINE HCL 20 MG/ML VL IV SCH (22:45)
[2025-08-18] MEDS: DIGOXIN (250MCG/ML) 2 ML AMPULE IV ONE (23:38)
--- NOTE | 2025-08-18 23:40 | DVHINCON2 ---
Date Seen: Aug 18, 2025 Referring Physician MARIA A Panchal Reason for Consultation Acute hypoxic respiratory failure History of Present Illness A 65-year-old Khmer-speaking man with a past medical history including diabetes mellitus and hypertension who presents to ED today with concern for cardiac s ymptoms and left-sided weakness. 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 Around 11 AM, he began sweating profusely and experienced sudden onset of left arm weakness, which progressed to generalized left-sided body weakness. Despite attempting to rest at home, his symptoms persisted. Pt remained mostly in bed throughout the day and began developing shortness of breath around the same time (11 AM). By 10 PM, he experienced increased difficulty breathing. He was brought in for evaluation today around 5 AM. The patient denied chest pain, cough, or fever but did report a sensation of chest pressure and pain that he described more like a muscle spasm. He experienced associated diaphoresis and fatigue during the episode. He also expressed concern due to a strong family history of heart disease. In the ED, the patient was noted to be hypotensive (BP 92/69) and tachycardic. Initial labs showed WBC 13.8, potassium 5.6, creatinine 2.90, glucose 339, and a markedly elevated troponin >25,000. EKG showed no STEMI but indicated conduction abnormalities (heart block). Cardiology planned to take pt emergently to clinical lab scientist and pt was admitted for further care. Pulmonary consultation is requested for evaluation and management of acute hypoxic respiratory failure. Review of Systems: 14-point review of systems negative unless otherwise noted above. Past Medical History: Diabetes mellitus, hypertension. Prior ICU admission with intubation 34 years ago for an unclear condition (possibly after a bee sting, per son) Past Surgical History: None Medications: Reviewed. Allergies: No known drug allergies. Family History: Positive for heart disease; multiple relatives including his siblings and grandmother who had heart attacks. Social History: Nonsmoker. No alcohol or illicit drug use. Family History: Cardiovascular disease G8 MOTHER G8 FATHER Allergies: Coded Allergies: NO KNOWN ALLERGIES (Unverified , 08/18/25) Home Meds Reported Medications Metformin Hydrochloride (Metformin Hcl) 500 Mg Tab, 500 MG PO IBID for 30 Days, MG 08/18/25 Simvastatin (Zocor) 10 Mg Tab, 20 MG PO HS, TAB 08/18/25 Current Medications Current Medications Medications (Trade) Dose Ordered Sig/Letitia Route PRN Reason Start Time Stop Time Status Last Admin Diagnostic Test (Pha) (Accu-Chek Comfort Curve T) 1 strip Q6HR 08/18/25 12:00 08/18/25 09:41 DC Insulin Human Regular (InsuLIN R) Q6HR SC 08/18/25 12:00 08/18/25 09:41 DC Dextrose 50 ml UD PRN IV Blood Sugar LESS THAN 60 08/18/25 09:30 08/18/25 09:41 DC Aspirin 81 mg DAILY PO 08/18/25 10:00 08/18/25 09:41 DC Clopidogrel Bisulfate (Plavix) 75 mg DAILY PO 08/18/25 10:00 08/18/25 09:41 DC Atorvastatin Calcium (Lipitor) 40 mg HS PO 08/18/25 22:00 08/18/25 09:41 DC Morphine Sulfate 2 mg Q30MP PRN IV FOR CHEST PAIN 08/18/25 09:30 08/18/25 09:41 DC Docusate Sodium (Colace Capsule) 100 mg DAILY PO 08/18/25 10:00 08/18/25 09:41 DC Nitroglycerin (Ntrostat Sublingual) 0.4 mg Q5MINP PRN SL FOR CHEST PAIN 08/18/25 09:30 08/18/25 09:41 DC Nitroglycerin (Ntrostat Sublingual) 0.4 mg Q5MINP PRN SL FOR CHEST PAIN 08/18/25 09:30 08/18/25 09:41 DC Insulin Human Regular (InsuLIN R) Q6HR AL 08/18/25 12:00 Hold Dextrose 50 ml UD PRN IV Blood Sugar LESS THAN 60 08/18/25 09:45 08/18/25 11:33 DC Morphine Sulfate 2 mg Q30MP PRN IV FOR CHEST PAIN 08/18/25 09:45 Aspirin 81 mg DAILY PO 08/18/25 10:15 Clopidogrel Bisulfate (Plavix) 75 mg DAILY PO 08/18/25 10:15 08/18/25 22:25 DC Atorvastatin Calcium (Lipitor) 40 mg HS PO 08/18/25 22:00 08/18/25 21:31 Docusate Sodium (Colace Capsule) 100 mg DAILY PO 08/18/25 10:15 Nitroglycerin (Ntrostat Sublingual) 0.4 mg Q5MINP PRN SL FOR CHEST PAIN 08/18/25 09:45 08/18/25 11:49 DC Nitroglycerin (Ntrostat Sublingual) 0.4 mg Q5MINP PRN SL FOR CHEST PAIN 08/18/25 09:45 08/18/25 10:24 DC Diagnostic Test (Pha) (Accu-Chek Comfort Curve T) 1 strip Q6HR 08/18/25 12:00 08/18/25 11:28 DC Insulin Human (Reg)/Sodium Chloride 100 ml @ 0.5 mls/hr Q24H IV 08/18/25 11:30 08/18/25 13:32 Dextrose 50 ml UD PRN IV SEE CURRENT ALGORITHM or SCALE 08/18/25 11:30 Diagnostic Test (Pha) (Accu-Chek Comfort Curve T) 1 strip Q90MIN 08/18/25 12:00 08/18/25 22:47 Nitroglycerin (Ntrostat Sublingual) 0.4 mg Q5MINP PRN SL FOR CHEST PAIN 08/18/25 11:45 Furosemide (Lasix Injection) 40 mg BIDD IV 08/18/25 18:00 08/18/25 17:56 DC Norepinephrine Bitartrate 250 ml @ 1.875 mls/ hr Q24H IV 08/18/25 14:30 08/18/25 14:56 Heparin Sodium/ Dextrose 250 ml @ 9 mls/hr Q24H IV 08/18/25 11:45 08/18/25 11:45 Furosemide (Lasix Injection) 40 mg Q12H IV 08/18/25 22:00 08/18/25 21:31 Hydralazine HCl (Apresoline Injection) 5 mg PRN IV 08/18/25 22:45 Hold Vital Signs Vital Signs Date Time Temp Pulse Resp B/P (MAP) Pulse Ox O2 Delivery O2 Flow Rate FiO2 08/18/25 23:38 113 08/18/25 22:00 12 98 Nasal Cannula* 4 36 08/18/25 21:31 149/77 08/18/25 18:00 98.2 98.2 Physical Exam Gen.: Patient lying in bed in no apparent distress. On supplemental oxygen. Head: Normocephalic, atraumatic. Eyes: EOMI/PERRLA. Ears: Normal hearing. Normal anatomy. Neck/trachea: Trachea midline, supple. Nose: Normal external anatomy. Mouth: Moist mucous membranes. Chest: Decreased air entry bilaterally. No wheezing or rhonchi. Cardiovascular: Positive S1, positive S2. Regular rate and rhythm. Abdomen: Positive bowel sounds in all 4 quadrants. Soft, non-tender, non- distended. : Deferred. Rectal: Deferred. Skin: Warm, dry. Intact. Extremities: 2+ radial pulses bilaterally. No lower extremity edema. Neuro: Awake, alert, oriented x3. No gross motor or sensory deficits. Cranial nerves II through XII intact. Gait not assessed. Labs/Diagnostic Data Labs Test 08/18/25 22:21 08/18/25 20:50 08/18/25 20:00 08/18/25 16:15 Range/Units POC Glucose 183 H 70-106 mg/dl Prothrombin Time 14.0 H 9.3-11.8 sec Prothrombin Time INR 1.36 H 0.9-1.15 Activated Partial Thromboplast Time 59.3 H 24.5-34.5 SEC Sodium Level 139 136-145 mmol/L Potassium Level 3.8 3.5-5.1 mmol/L Chloride Level 107 98-107 mmol/L Carbon Dioxide Level 18 L 20-31 mmol/L Anion Gap 14 5-15 Blood Urea Nitrogen 42 H 9-23 mg/dL Creatinine 2.00 H 0.700-1.30 mg/dL Glomerular Filtration Rate Calc 36 >90 mL/min BUN/Creatinine Ratio 21.0 H 10.0-20.0 Serum Glucose 148 #H 74-106 mg/dL Calcium Level 8.3 L 8.7-10.4 mg/dL Blood Gas Specimen Type Arterial Blood Gas Sample Site Left radial Blood Gas Patient Temperature 37.0 Arterial Blood Date Drawn [id number] Arterial Blood pH 7.476 H 7.350-7.450 Arterial Blood Partial Pressure CO2 23.4 L 35.0-48.0 mmHg Arterial Blood Partial Pressure O2 69.2 L 83.0-108.0 mmHg Arterial Blood HCO3 16.9 L 21.0-28.0 mmol/L Arterial Blood Oxygen Saturation 93.1 L 94.0-98.0 % Arterial Blood Base Excess -4.2 L -2.0-3.0 mmol/L Arterial Blood Oxyhemoglobin 91.8 L 94.0-98.0 % Arterial Blood Carboxyhemoglobin 1.1 0.5-1.5 % Arterial Blood Methemoglobin 0.3 0.0-1.5 % Shawn Test Yes Blood Gas Total Hemoglobin 16.60 13.5-17.5 g/dL Blood Gas Liter Flow 4.00 Blood Gas Modality Nasal cannula FiO2 % 36.0 Test 08/18/25 14:55 08/18/25 13:38 08/18/25 12:30 08/18/25 08:30 Range/Units White Blood Count 13.9 H 4.4-10.8 10^3/uL Red Blood Count 4.74 4.5-5.90 10^6/uL Hemoglobin 15.7 13.5-17.5 g/dL Hematocrit 45.7 # 41.0-53.0 % Mean Corpuscular Volume 96.4 80.0-100.0 fL Mean Corpuscular Hemoglobin 33.0 H 28.0-32.0 pg Mean Corpuscular Hemoglobin Concent 34.3 32.0-36.0 g/dL Red Cell Distribution Width 13.3 11.8-14.3 % Platelet Count 181 140-450 10^3/uL Mean Platelet Volume 8.6 6.9-10.8 fL Neutrophils (%) (Auto) 85.6 H 37.0-80.0 % Lymphocytes (%) (Auto) 8.3 L 10.0-50.0 % Monocytes (%) (Auto) 5.5 0.0-12.0 % Eosinophils (%) (Auto) 0.0 0.0-7.0 % Basophils (%) (Auto) 0.6 0.0-2.0 % Neutrophils # (Auto) 11.9 H 1.6-8.6 10 ^3/uL Lymphocytes # (Auto) 1.1 0.4-5.4 10 ^3/uL Monocytes # (Auto) 0.8 0-1.3 10 ^3/uL Eosinophils # (Auto) 0 0-0.8 10 ^3/uL Basophils # (Auto) 0.1 0-0.2 10 ^3/uL Nucleated Red Blood Cells 0.0 % Serum Osmolality 331 H 278-298 mOsm/kg Troponin I High Sensitivity > 15720 *H </=54 ng/L Lactic Acid Level 4.8 *H 0.4-2.0 mmol/L Phosphorus Level 4.0 2.4-5.1 mg/dL Magnesium Level 2.0 1.6-2.6 mg/dL Lactate Dehydrogenase 1810 H 120-246 U/L Beta-Hydroxybutyric Acid 0.410 H < 0.4 mmol/L Urine Color Yellow Yellow Urine Clarity Turbid H Clear Urine pH 5.0 5.0-9.0 Urine Specific Byron 1.029 1.001-1.035 Urine Protein 1+ H Negative Urine Ketones 1+ H Negative Urine Blood Negative Negative /uL Urine Nitrite Negative Negative Urine Bilirubin Negative Negative Urine Urobilinogen Normal Negative mg/dL Urine Leukocyte Esterase Negative Negative /uL Urine RBC 1 0 - 3 /hpf Urine Microscopic WBC 4 H 0-3 /HPF Urine Squamous Epithelial Cells Few <5 /hpf Urine Bacteria None seen None Seen /hpf Urine Hyaline Casts Many 0 - 2 /lpf Urine Mucus Few None Seen Urine Creatinine 227.21 H 30.0-125.0 mg/dL Urine Sodium 12 L 40-220 mmol/L Urine Glucose Trace Normal mg/dL D-Dimer, Quantitative 1.35 H 0.0-0.49 mg/L FEU Hemoglobin A1c 6.9 H <5.7 % A1C B-Type Natriuretic Peptide 963.53 0-100 pg/mL Triglycerides Level 123 < 150 mg/dL Cholesterol Level 218 H < 200 mg/dL LDL Cholesterol 153 H < 100 mg/dL HDL Cholesterol 60 H 40-59 mg/dL Assessment Impression: Acute hypoxic respiratory failure Dependence on supplemental oxygen Dyspnea ST elevation myocardial infarction Diabetic ketoacidosis Pulmonary edema Congestive heart failure, EF 10% CAD with multivessel disease Metabolic acidosis Obesity 32.2 Plan: Supplemental oxygen Currently on 4 LPM NC Titrate to keep O2 sats above 92%. Taper O2 as tolerated. Accu-Cheks Insulin drip Heparin drip Off Levophed, hemodynamically stable. Follow up ABG results. Cardiology recs appreciated. Diurese to euvolemia Monitor renal function. Monitor electrolytes. Supplement as necessary. Monitor ins and outs. Diet and lifestyle modifications for weight reduction Obesity complicates all care DVT prophylaxis. Prognosis: Poor given patient's multiple co-morbidities. Rest of plan per hospitalist and other consultants. Thank you, MARIA A Panchal, for allowing me to participate in this patient's care. Further recommendations will depend on the patient's clinical course. Please do not hesitate to contact me if you have any questions or concerns. This medical document was created using an electronic medical record system with [employer] computerized dictation system. Although these documentations are being carefully reviewed, there may still be some phonetic and typographical changes. The errors are purely typographical, due to imperfection on the software program, and do not reflect any compromise in the patient's medical care. Plan discussed with: Patient, Other (HALLIE Coffey) Date of Service: Aug 18, 2025 Billing Provider: SHIELA DOWELL MD Common Visit Codes: [id number] INP/OBS CARE (HIGH) SHIELA DOWELL MD Aug 18, 2025 23:40
[2025-08-19] VITALS (101 sets, daily range): BP systolic 99–173; BP diastolic 48–95; PULSE 66–145; RESP 0–35; TEMP 97.6–98.1; O2SAT 86–100
[2025-08-19] MEDS: POTASSIUM CHL 20 Meq TABLET PO ONE (00:23)
[2025-08-19 01:39] LABS: Chloride 105 mmol/L (98-107); Potassium 3.5 mmol/L (3.5-5.1); Sodium 138 mmol/L (136-145)
[2025-08-19 01:40] LABS: Anion Gap 13 (5-15); Carbon Dioxide 20 mmol/L (20-31)
[2025-08-19 01:41] LABS: Calcium 8.1 mg/dL (8.7-10.4)
[2025-08-19 01:45] LABS: BUN/Creatinine Ratio 20.6 (10.0-20.0)
[2025-08-19 01:48] LABS: Blood Urea Nitrogen 37 mg/dL (9-23); Glucose 154 mg/dL (74-106)
[2025-08-19 04:33] LABS: Hematocrit 42.5 % (41.0-53.0); Hemoglobin 15.2 g/dL (13.5-17.5); Mean Corpuscular Hemoglobin 33.8 pg (28.0-32.0); Mean Corpuscular Volume 94.8 fL (80.0-100.0); Nucleated Red Blood Cells % 0.1 %
--- NOTE | 2025-08-19 04:41 | DVH ---
CHEST RADIOGRAPH Indication: IABP PLACEMENT, MONITOR RESPIRATORY STATUS Technique: Single frontal view of the chest was obtained Comparison: XY CHEST XRAY 1 VIEW on DOS: 08/18/25. FINDINGS: Lines and Tubes: There is an intra-aortic balloon pump which terminates 2.8 cm below the aortic arch superior margin. Lungs: Diffuse bilateral airspace opacities are similar to the prior study. Pleura: No effusion. No pneumothorax. Cardiomediastinal contours: Stable. Bones: No acute osseous abnormality. IMPRESSION: 1. Intra-aortic balloon pump terminates 2.8 cm below the aortic arch superior margin. 2. Diffuse bilateral airspace opacities are similar to the prior study.
[2025-08-19 04:49] LABS: Anion Gap 12 (5-15); Carbon Dioxide 21 mmol/L (20-31); Chloride 104 mmol/L (98-107); Potassium 4.0 mmol/L (3.5-5.1); Sodium 137 mmol/L (136-145)
[2025-08-19 04:52] LABS: Calcium 8.3 mg/dL (8.7-10.4)
[2025-08-19 04:53] LABS: INR 1.41 (0.9-1.15); Partial Thromboplastin Time 63.7 SEC (24.5-34.5); Prothrombin Time 14.4 sec (9.3-11.8)
[2025-08-19 04:55] LABS: BUN/Creatinine Ratio 30.2 (10.0-20.0)
[2025-08-19 04:57] LABS: Blood Urea Nitrogen 51 mg/dL (9-23); Glucose 148 mg/dL (74-106)
[2025-08-19] MEDS ORDERED: DEXTROSE (50%) 50ML SYRG IV PRN (08:15)
[2025-08-19] MEDS: DOCUSATE SOD 100 MG CAP PO SCH (09:33)
--- NOTE | 2025-08-19 09:42 | DVHPN2 ---
Progress Note Date Seen: Aug 19, 2025 Medical Necessity Reason Pt with a Central, PICC or Fol: No Subjective Patient reports: Feels better Other Systems: creat improved no pressors augmenting well no pain Objective vital signs Vital Sign Date Time Temp Pulse Resp B/P (MAP) Pulse Ox O2 Delivery O2 Flow Rate FiO2 08/19/25 09:15 106 121/66 (84) 96 08/19/25 08:45 23 08/19/25 08:00 97.6 97.6 08/19/25 08:00 Oxymizer 5 N/A Total Intake and Output 08/18/25 08/18/25 08/19/25 15:00 23:00 07:00 Intake Total 2205.750 ml 439.5 ml 562.5 ml Output Total 1200 ml 1450 ml Balance 2205.750 ml -760.5 ml -887.5 ml medications Current Medications Medications Dose Ordered Sig/Letitia Route Start Time Stop Time Status Last Admin Dose Admin Insulin Human Regular Q6HR SC 08/18/25 12:00 Hold Morphine Sulfate 2 mg Q30MP PRN IV 08/18/25 09:45 Aspirin 81 mg DAILY PO 08/18/25 10:15 08/19/25 09:33 81 MG Atorvastatin Calcium 40 mg HS PO 08/18/25 22:00 08/18/25 21:31 40 MG Docusate Sodium 100 mg DAILY PO 08/18/25 10:15 08/19/25 09:33 100 MG Nitroglycerin 0.4 mg Q5MINP PRN SL 08/18/25 11:45 Norepinephrine Bitartrate 250 ml @ 1.875 mls/ hr Q24H IV 08/18/25 14:30 08/18/25 14:56 1.875 MLS/HR Heparin Sodium/ Dextrose 250 ml @ 9 mls/hr Q24H IV 08/18/25 11:45 08/18/25 11:45 9 MLS/HR Hydralazine HCl 5 mg PRN IV 08/18/25 22:45 Hold Diagnostic Test (Pha) 1 strip IQ4HR 08/19/25 12:00 Insulin Human Regular IQ4HR SC 08/19/25 12:00 Dextrose 50 ml UD PRN IV 08/19/25 08:15 Furosemide 40 mg DAILY IV 08/19/25 18:00 Lorazepam 0.5 mg Q6HP PRN IV 08/19/25 09:15 Examination: GENERAL:Abnormal, HEENT:Abnormal, LUNGS:Abnormal, CVS:Abnormal, ABDOMEN:Abnormal laboratory and microbiology Laboratory Tests 08/19/25 03:15 Test 08/19/25 03:15 Range/Units Serum Glucose 148 H 74-106 mg/dL Microbiology Date/Time Source Procedure Growth Status 08/18/25 12:30 Urine - [place] Urine Culture - Preliminary Resulted Problem List/Assessment/Plan Problem List/Assessment/Plan cardio shock_---cont iabp, bp 170s now, consider afterload reduction with hydralazine, LVEF 10%, diuretics 1x a day now, cont heparin nstemi---asa, heparin , start statin, eval at tertiary center for candidacy of revasc tachycardia--HR 110s , shock , watch for arrhythmias RENAL ckd--improved 2.9 to 1.6 , cut back on lasix today , renal consult bicarbonate better , lactate pending PULM on 5L o2 , pulm eval, abg stable GI can give prophy cardiac diet ENDO dc insulin gtt, sliding scale per hospitalist ID [id number], no fevers, defer to primary 60 mins critical care time spent Plan discussed with: Patient My Orders My Orders Orders - LISA LEI MD Procedure Category Date Status Time Abg W/ Co-Ox RT 08/18/25 Logged 10:35 Chest Xray 1 View XY 08/18/25 Resulted 11:10 *Dr. [facility] CONS 08/18/25 Transmitted -[place] 11:30 *Consult CONS 08/18/25 Verified 11:30 [place] Catheters ED NURSING 08/18/25 Transmitted Communication Order ORDERS 08/18/25 Transmitted 12:42 Mrsa Screen ADRIANNA 08/18/25 In Process 13:07 Urine Bacterial ADRIANNA 08/18/25 In Process Culture 13:07 Hepatitis B Surface LAB 08/18/25 In Process Antigen 13:51 Hepatitis C Antibody LAB 08/18/25 In Process 13:51 Norepinephrine 8 PHA 08/18/25 In Process Mg/250ml Kit 14:30 Heparin Drip/D5w PHA 08/18/25 In Process 100units/Ml 11:45 Platelet Monitoring ARIE 08/18/25 Verified 15:10 Heparin Per ARIE 08/18/25 Verified Standardized Proce 15:10 Discontinue All Im ARIE 08/18/25 Verified Injections 15:10 * C Programmer CONS 08/18/25 Transmitted Consult Heparin Per Pharmacy [facility]E 08/18/25 In Process Protocol 22:02 Hydralazine Injection PHA 08/18/25 In Process (Apresoline Inject 22:45 PTPTT LAB 08/20/25 Verified 04:00 Cardiac DIET 08/19/25 Transmitted Diet-2gna,Lofat,Lochol Breakfast Lactic Acid W/ Reflex LAB 08/19/25 In Process Order 08:07 Glucose Blood PHA 08/19/25 In Process (Accu-Chek Comfort 12:00 Insulin R (Human) PHA 08/19/25 In Process (Insulin R) 12:00 Dextrose 50% Syringe PHA 08/19/25 In Process 08:15 Complete Blood Count LAB 08/20/25 Verified 04:00 Heparin Per Pharmacy [facility] 08/19/25 In Process Protocol 08:34 Furosemide Injection PHA 08/19/25 In Process (Lasix Injection) 18:00 Lorazepam 2mg/Ml Inj PHA 08/19/25 In Process (Ativan Inj) 09:15 Date of Service: Aug 19, 2025 Billing Provider: LISA LEI MD Common Visit Codes: NOT BILLABLE LISA LEI MD Aug 19, 2025 09:42
[2025-08-19 09:52] LABS: Lactic Acid w/Reflex 2.4 mmol/L (0.4-2.0)
[2025-08-19 10:28] LABS: Hepatitis B Surface Antigen Negative (Negative); Hepatitis C Antibody Negative (Negative)
[2025-08-19] MEDS: ACCU-CHEK COMFORT CURVE STRIP VI SCH (11:18)
[2025-08-19] MEDS: InsuLIN REG 1unit/0.01ml Soln (100units/ml) SC SCH (11:23)
[2025-08-19] MEDS ORDERED: ALBUTEROL SULF 2.5 MG/0.5ML(0.5%) NEB SOLN NEB PRN (13:45)
[2025-08-19] MEDS ORDERED: IPRATROPIUM BROM 0.5 MG/2.5ML INH SOL NEB PRN (13:45)
[2025-08-19] MEDS: IPRATROPIUM BROM 0.5 MG/2.5ML INH SOL ONE (13:52)
[2025-08-19] MEDS: ALBUTEROL SULF 2.5 MG/0.5ML(0.5%) NEB SOLN ONE (13:53)
--- NOTE | 2025-08-19 17:02 | DVHDSRES ---
Discharge Summary Date of Admission Resident Creating Document: JAYCE HUNT RESIDENT Aug 18, 2025 at 09:25 Date of Discharge: Aug 19, 2025 Labs/Diagnostic Data: Laboratory Results Test 08/19/25 16:15 08/19/25 09:22 08/19/25 03:15 08/18/25 16:15 POC Glucose 213 mg/dl (70-106) Lactic Acid Level 2.4 mmol/L (0.4-2.0) White Blood Count 18.9 10^3/uL (4.4-10.8) Red Blood Count 4.48 10^6/uL (4.5-5.90) Hemoglobin 15.2 g/dL (13.5-17.5) Hematocrit 42.5 % (41.0-53.0) Mean Corpuscular Volume 94.8 fL (80.0-100.0) Mean Corpuscular Hemoglobin 33.8 pg (28.0-32.0) Mean Corpuscular Hemoglobin Concent 35.7 g/dL (32.0-36.0) Red Cell Distribution Width 12.8 % (11.8-14.3) Platelet Count 130 10^3/uL (140-450) Mean Platelet Volume 9.2 fL (6.9-10.8) Neutrophils (%) (Auto) 86.2 % (37.0-80.0) Lymphocytes (%) (Auto) 6.1 % (10.0-50.0) Monocytes (%) (Auto) 7.7 % (0.0-12.0) Eosinophils (%) (Auto) 0.0 % (0.0-7.0) Basophils (%) (Auto) 0.0 % (0.0-2.0) Neutrophils # (Auto) 16.3 10 ^3/uL (1.6-8.6) Lymphocytes # (Auto) 1.1 10 ^3/uL (0.4-5.4) Monocytes # (Auto) 1.4 10 ^3/uL (0-1.3) Eosinophils # (Auto) 0 10 ^3/uL (0-0.8) Basophils # (Auto) 0 10 ^3/uL (0-0.2) Nucleated Red Blood Cells 0.1 % Prothrombin Time 14.4 sec (9.3-11.8) Prothrombin Time INR 1.41 (0.9-1.15) Activated Partial Thromboplast Time 63.7 SEC (24.5-34.5) Sodium Level 137 mmol/L (136-145) Potassium Level 4.0 mmol/L (3.5-5.1) Chloride Level 104 mmol/L (98-107) Carbon Dioxide Level 21 mmol/L (20-31) Anion Gap 12 (5-15) Blood Urea Nitrogen 51 mg/dL (9-23) Creatinine 1.69 mg/dL (0.700-1.30) Glomerular Filtration Rate Calc 45 mL/min (>90) BUN/Creatinine Ratio 30.2 (10.0-20.0) Serum Glucose 148 mg/dL (74-106) Calcium Level 8.3 mg/dL (8.7-10.4) Blood Gas Specimen Type Arterial Blood Gas Sample Site Left radial Blood Gas Patient Temperature 37.0 Arterial Blood Date Drawn [id number] Arterial Blood pH 7.476 (7.350-7.450) Arterial Blood Partial Pressure CO2 23.4 mmHg (35.0-48.0) Arterial Blood Partial Pressure O2 69.2 mmHg (83.0-108.0) Arterial Blood HCO3 16.9 mmol/L (21.0-28.0) Arterial Blood Oxygen Saturation 93.1 % (94.0-98.0) Arterial Blood Base Excess -4.2 mmol/L (-2.0-3.0) Arterial Blood Oxyhemoglobin 91.8 % (94.0-98.0) Arterial Blood Carboxyhemoglobin 1.1 % (0.5-1.5) Arterial Blood Methemoglobin 0.3 % (0.0-1.5) Shawn Test Yes Blood Gas Total Hemoglobin 16.60 g/dL (13.5-17.5) Blood Gas Liter Flow 4.00 Blood Gas Modality Nasal cannula FiO2 % 36.0 Test 08/18/25 14:55 08/18/25 13:38 08/18/25 12:30 08/18/25 08:30 Serum Osmolality 331 mOsm/kg (278-298) Troponin I High Sensitivity > 06097 ng/L (</=54) Hepatitis B Surface Antigen Negative (Negative) Hepatitis C Antibody Negative (Negative) Phosphorus Level 4.0 mg/dL (2.4-5.1) Magnesium Level 2.0 mg/dL (1.6-2.6) Lactate Dehydrogenase 1810 U/L (120-246) Beta-Hydroxybutyric Acid 0.410 mmol/L (< 0.4) Urine Color Yellow (Yellow) Urine Clarity Turbid (Clear) Urine pH 5.0 (5.0-9.0) Urine Specific [place] 1.029 (1.001-1.035) Urine Protein 1+ (Negative) Urine Ketones 1+ (Negative) Urine Blood Negative /uL (Negative) Urine Nitrite Negative (Negative) Urine Bilirubin Negative (Negative) Urine Urobilinogen Normal mg/dL (Negative) Urine Leukocyte Esterase Negative /uL (Negative) Urine RBC 1 /hpf (0 - 3) Urine Microscopic WBC 4 /HPF (0-3) Urine Squamous Epithelial Cells Few /hpf (<5) Urine Bacteria None seen /hpf (None Seen) Urine Hyaline Casts Many /lpf (0 - 2) Urine Mucus Few (None Seen) Urine Creatinine 227.21 mg/dL (30.0-125.0) Urine Sodium 12 mmol/L (40-220) Urine Glucose Trace mg/dL (Normal) D-Dimer, Quantitative 1.35 mg/L FEU (0.0-0.49) Hemoglobin A1c 6.9 % A1C (<5.7) B-Type Natriuretic Peptide 963.53 pg/mL (0-100) Triglycerides Level 123 mg/dL (< 150) Cholesterol Level 218 mg/dL (< 200) LDL Cholesterol 153 mg/dL (< 100) HDL Cholesterol 60 mg/dL (40-59) Other Laboratory Tests 08/19/25 03:15 Brief Hx & Hospital Course: A 65-year-old German-speaking man with a past medical history including diabetes mellitus and hypertension who presents to ED today with concern for cardiac symptoms . 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 Despite attempting to rest at home, his symptoms persisted. Pt remained mostly in bed throughout the day and began developing shortness of breath around the same time (11 AM). By 10 PM, he experienced increased difficulty breathing. He was brought in for evaluation 08/18/2025 around 5 AM. Patient history of ICU admission 3/4 years ago possible sting bite.In the ED, the patient was noted to be hypotensive (BP 92/69) and tachycardic. Initial labs showed WBC 13.8, potassium 5.6, creatinine 2.90, glucose 339, a markedly elevated troponin >25,000 and BS is elevated at 356. Past Medical History: DM2, hypertension. Prior ICU admission with intubation 34 years ago for an unclear condition (possibly after a bee sting, per son) Past Surgical History: None Allergies: No known drug allergies. Family History: Positive for heart disease; multiple relatives including his siblings and grandmother who had heart attacks. Social History: Nonsmoker. No alcohol or illicit drug use. HOME MEDICATION: metformin, simvastatin Hospital course: This is a 65-year-old male admitted due to NSTMI . Initial labs were troponin level >[address] but EKG showed no ST segment changes. Patient went to clinical laboratory director/initiate chest pain protocol on 08/18/2025. Cardiology consulted and patient went angiogram on 08/18/2025 showed critical multiple critical coronary artery disease, placement intra-aortic balloon pump and recommended patient need to transferred higher level of care. initial chest x- ray shows findings suggestive of pulmonary edema. after placement intra-aortic balloon pump, repeat x-ray shows IABP clip position as described and Worsening pulmonary edema compared to earlier film of the same date. Renal ultrasound unremarkable renal study, nephrology consulted due to worsening of kidney function and electrolyte imbalance recommended IV fluid as cardiopulmonary status permits, repeat renal panel. Pulmonary recommended continue oxygen and keep saturation 92%, taper as patient tolerated. Continue heparin drip, monitor any signs symptoms of bleeding and CBC. Patient currently seen on bedside denies any fever, SOB, chest pain, headache, dysuria or any other acute distress. Patient is hemodynamically stable transfer to higher level of care. The patient has received maximum benefits from inpatient treatment. Time was given to answer patient/family members questions and concerns in Layman terms. patient verbalized understanding and agree with treatment and follow-up. Patient having acceptance from Hospital waiting for transfers. The patient will ultimately need to be transferred to a higher level of care for shock treatment and options for further therapy. Physical examination Constitutional: No: Fever, Chills, Sweats, Weakness, Malaise Eyes: No: Pain, Vision change, Conjunctivae inflammation, Eyelid inflammation ENT: No: Ear pain, Ear discharge, Nose pain, Nose discharge, Nose congestion, Mouth pain, Mouth swelling, Throat pain, Throat swelling Respiratory: Shortness of breath; No: Cough, Dry, SOB with excertion, Wheezing, Hemoptysis, Pleuritic Pain, Sputum, Wheezing, Other Cardiovascular: No: Chest Pain, Palpitations, Orthopnea, Paroxysmal Noc. Dyspnea, Edema, Lt Headedness Gastrointestinal: No: Nausea, Vomiting, Abdominal Pain, Diarrhea, Constipation, Melena, Hematochezia Genitourinary: No Dysuria, No Frequency, No Incontinence, No Hematuria, No Retention Musculoskeletal: Triple catheter placed on right groin Skin: No: Rash, Lesions, Jaundice, Bruising Neurological: No: Weakness, Numbness, Incoordination, Change in speech, Confusion, Seizures critical care time excluding procedures is 82 mins Operations or Procedures ORDERING PHYSICIAN: CROW HIRSCH MD PROCEDURE(s): CXRP - CHEST PORTABLE REASON: chest pain ORDER NUMBER(s): [id number], ACCESSION NUMBER(s): [id number] AP portable chest CLINICAL INDICATION: chest pain FINDINGS: Heart size is normal. Pulmonary vascular markings are increased IMPRESSION: 1. Findings suggest pulmonary edema ATED BY: ALF BELTRAN MD DICTATED DATE/TIME: 08/18/25928 ORDERING PHYSICIAN: MICHELLE VIGIL DNP PROCEDURE(s): KIDUS - KIDNEY REASON: eval for acute renal failure ORDER NUMBER(s): [id number], ACCESSION NUMBER(s): [id number] KIDNEY HISTORY: eval for acute renal failure COMPARISON: None TECHNIQUE: Transverse and longitudinal grayscale and color doppler images were obtained of the kidneys and bladder. FINDINGS: Right kidney: Size: 10.7 cm Cortical thickness: Normal Echogenicity: Normal Stones: None Masses: None Hydronephrosis: None Ureters: Not well visualized. Other: None Left kidney: Size: 10.3 cm Cortical thickness: Normal Echogenicity: Normal Stones: None Masses: None Hydronephrosis: None Ureters: Not well visualized. Other: None Bladder: Normal Other: None. IMPRESSION: Unremarkable renal ultrasound. ATED BY: MONTY GARNER MD DICTATED DATE/TIME: 08/18/25 1412 Patient: BRIGIDA SHAW Acct: [id number] : 1960 Loc: [facility] Age/Sex: 65/M Room: [address] [place] [address] / Bed: A Attending Phy: MICHELLE VIGIL DNP DATE OF SURGERY: 08/18/2025 OPERATING PHYSICIAN: Dr. Gerald Lie. PREOPERATIVE DIAGNOSIS: High-risk non-STEMI shock. POSTOPERATIVE DIAGNOSES: Multivessel CAD, high-risk non-STEMI shock. PROCEDURES PERFORMED: Selective coronary angiogram, left heart catheterization, conscious sedation administration and supervision less than 15 minutes, as well as 15-30 minutes fluoroscopy use and interpretation, ultrasound-guided vascular access of the right radial artery and placement of a sheath, ultrasound-guided vascular access of the right common femoral artery and placement of intraaortic balloon pump, ultrasound-guided vascular access of the right common femoral vein and placement of a venous sheath CVC catheter. DESCRIPTION OF PROCEDURE: The patient signed informed consent understanding the risks, benefits, and alternatives of procedure and wished to proceed. He was brought to the clinical laboratory director in n.p.o. state. He was prepped in sterile fashion. Sedation was used per cardiac cath protocol. I administered 1 mL of 2% lidocaine in his right wrist. With an antegrade flow wall puncture using microaccess and ultrasound guidance, I cannulated the right radial artery. This vessel was patent seen on the ultrasound. The patient had a very thready pulse as he was likely in significant shock. Blood pressure was about 90s-100 systolic during the initiation of the procedure. A 6-Guatemalan sheath was placed and intra-arterial spasmolytic was administered. Next, an angiogram was performed. This showed a small left main with diffuse distal plaquing and bifurcation in an LAD and circumflex. LAD was completely occluded from the ostium. There was collateral flow to the proximal LAD from the RPL branch. Next, circumflex proximally in the ostium has a 70% lesion. The proximal mid circumflex has an 80%-90% lesion, and then the mid circumflex had another 80%-90% lesion, with an OM distal target. Next, RCA proximally had a 50%-60% stenosis. The mid RCA is a very large vessel and the dominant vessel of the heart, giving off the distal RCA that is patent. The distal RCA gives off a PDA that is fairly small and a very large RPL branch. RPL branch proximally is patent. The mid portion has a bifurcating lesion of about 90%-95%. After that lesion, the more superior branch gives collateral flow to that LAD. At this point, the patient has critical multivessel CAD and appears to be in shock at this point. An LV pressure showed an LVEDP of 20 mmHg. There was a very narrow pulse pressure to begin with on his cardiac catheterization along with hypoxia. At this point, it was decided to place, with ultrasound guidance and 8 mL of 2% lidocaine to the groin, I placed a right common femoral artery sheath 6-Guatemalan after showing patency of the right common femoral artery. There was a patent right common femoral vein and I placed a 6-Guatemalan sheath and then I switched that out for a triple-lumen catheter. Then, over the 6-Guatemalan arterial sheath, I switched out to an 8-Guatemalan sheath and placed a 50 mL intraaortic balloon pump into the thoracic aorta distal to the touchdown of the subclavian. This was sutured into place. There were no immediate complications. Heparin was started. CONCLUSION: * Critical multivessel CAD. * Placement of intra-aortic balloon pump. * Placement of triple lumen catheter. PLAN: Check a stat echo for the patient. Heparinize the patient at this point. Levophed. Nephrology consult. Pulmonary consult for further evaluation. The patient will ultimately need to be transferred to a higher level of care for shock treatment and options for further therapy. I discussed this at length with the patient's son, explaining the patient is in critical condition, severely ill with multi-organ failure. Gerald Lei MD CM/SAY TID: [id number] RECEIPT: [id number] DICTATED BY:GERALD LEI MD DICTATED DATE/TIME:08/18/25929 Condition at Discharge: Stable Final Diagnosis/Problems List NSTEMI Critical multivessel coronary artery disease Acute on chronic systolic heart failure Placement intra-aortic balloon pump Acute hypoxic respiratory failure COPD with dependence on supplemental oxygen ST elevation myocardial infarction Diabetic ketoacidosis Pulmonary edema Congestive heart failure, EF 10% CAD with multivessel disease Metabolic acidosis Hemodynamically mediated NEGRO/VMN in setting of acute [place] Hyperkalemia Acute [place] , currently on IABP support Metabolic acidosis H/o of diabetes Morbid obesity Discharge Disposition: Acute Care Facility Discharge Instruct/Medications Diet: Cardiac 2g Na,low cholest Activity: Bed rest Follow Up/Referral: Transferred to higher level of care for further management. Scheduled Metformin Hydrochloride (Metformin Hcl), 500 MG PO IBID, (Reported) Simvastatin (Zocor), 20 MG PO HS, (Reported) Discharge Statement: "Patient was advised to return to the ER or call 911 if any headaches, dizziness, shortness of breath, chest pain, abdominal pain, bleeding, fevers, or worsening of medical condition. Patient was counseled about treatment plan, medications, possible side effects, patientverbalized understanding. All questions were answered to the best of my ability. This discharge took greater then 30 minutes in planning, reviewing documentation, counseling the patient, and discussing with other team members." ASSESSMENT ASSESSMENT Assessment NSTEMI Date of Service: Aug 19, 2025 Billing Provider: TORRES VALERO MD Common Visit Codes: [id number] CARE 30-74 MIN, [id number] CARE-EACH +30MIN JAYCE HUNT RESIDENT Aug 19, 2025 17:02 TORRES VALERO MD Aug 20, 2025 13:02
[2025-08-19] MEDS: FUROSEMIDE 40 MG/4 ML VIAL IV SCH (17:55)
[2025-08-19] MEDS: LORazepam 2MG/ML-1ML VIAL IV PRN (18:01)
[2025-08-19] MEDS: MORPHINE SULFATE 4 MG/ML SYR/VIAL IV PRN (21:52)
--- NOTE | 2025-08-19 22:07 | DVHPN2 ---
Progress Note Date Seen: Aug 19, 2025 Medical Necessity Reason Pt with a Central, PICC or Fol: No Subjective Patient reports: Other (No new events) Review of Systems: Deferred Objective vital signs Vital Sign Date Time Temp Pulse Resp B/P (MAP) Pulse Ox O2 Delivery O2 Flow Rate FiO2 08/19/25 22:00 111 08/19/25 22:00 18 97 Oxymizer 3 N/A 08/19/25 21:52 162/82 08/19/25 19:30 97.9 97.9 Total Intake and Output 08/18/25 08/18/25 08/19/25 15:00 23:00 07:00 Intake Total 2205.750 ml 439.5 ml 562.5 ml Output Total 1200 ml 1450 ml Balance 2205.750 ml -760.5 ml -887.5 ml medications Current Medications Medications Dose Ordered Sig/Letitia Route Start Time Stop Time Status Last Admin Dose Admin Morphine Sulfate 2 mg Q30MP PRN IV 08/18/25 09:45 08/19/25 21:52 2 MG Aspirin 81 mg DAILY PO 08/18/25 10:15 08/19/25 09:33 81 MG Atorvastatin Calcium 40 mg HS PO 08/18/25 22:00 08/19/25 21:30 40 MG Docusate Sodium 100 mg DAILY PO 08/18/25 10:15 08/19/25 09:33 100 MG Nitroglycerin 0.4 mg Q5MINP PRN SL 08/18/25 11:45 Norepinephrine Bitartrate 250 ml @ 1.875 mls/ hr Q24H IV 08/18/25 14:30 08/18/25 14:56 1.875 MLS/HR Heparin Sodium/ Dextrose 250 ml @ 9 mls/hr Q24H IV 08/18/25 11:45 08/19/25 11:56 9 MLS/HR Hydralazine HCl 5 mg PRN IV 08/18/25 22:45 Hold Diagnostic Test (Pha) 1 strip IQ4HR 08/19/25 12:00 08/19/25 20:01 1 STRIP Insulin Human Regular IQ4HR SC 08/19/25 12:00 08/19/25 20:02 2 UNITS Dextrose 50 ml UD PRN IV 08/19/25 08:15 Furosemide 40 mg DAILY IV 08/19/25 18:00 08/19/25 17:55 40 MG Lorazepam 0.5 mg Q6HP PRN IV 08/19/25 09:15 08/19/25 18:01 0.5 MG Albuterol 2.5 mg Q6HPRN PRN NEB 08/19/25 13:45 Ipratropium [place] 0.5 mg Q6HPRN PRN NEB 08/19/25 13:45 Examination: GENERAL:Abnormal, LUNGS:Abnormal, MSK:Abnormal, NEURO:Abnormal laboratory and microbiology Laboratory Tests 08/19/25 03:15 Test 08/19/25 03:15 Range/Units Serum Glucose 148 H 74-106 mg/dL Microbiology Date/Time Source Procedure Growth Status 08/18/25 12:40 Nose MRSA Screen - Final Complete 08/18/25 12:30 Urine - [place] Urine Culture - Preliminary Resulted Problem List/Assessment/Plan Problem List/Assessment/Plan 1) Hemodynamically mediated NEGRO/VMN in setting of acute [place] 2) hyperkalemia 3) acute [place] , currently on IABP support 4) metabolic acidosis 5) history of diabetes Recommendations Continue with IV Lasix 40 mg daily Nonoliguric Pending higher level of care transfer We will follow closely Plan discussed with: ROSE Fernandez MD Aug 19, 2025 22:07
[2025-08-19 23:21] LABS: Hematocrit 43.0 % (41.0-53.0); Hemoglobin 15.0 g/dL (13.5-17.5); Mean Corpuscular Hemoglobin 33.4 pg (28.0-32.0); Mean Corpuscular Volume 95.7 fL (80.0-100.0); Nucleated Red Blood Cells % 0.0 %
[2025-08-19 23:31] LABS: Carbon Dioxide 23 mmol/L (20-31)
[2025-08-19 23:37] LABS: BUN/Creatinine Ratio 35.0 (10.0-20.0)
[2025-08-19 23:43] LABS: Blood Urea Nitrogen 43 mg/dL (9-23); Calcium 8.2 mg/dL (8.7-10.4); Glucose 165 mg/dL (74-106)
[2025-08-19 23:46] LABS: Anion Gap 11 (5-15); Chloride 105 mmol/L (98-107); Potassium 3.9 mmol/L (3.5-5.1); Sodium 139 mmol/L (136-145)
[2025-08-20] VITALS (100 sets, daily range): BP systolic 102–160; BP diastolic 61–95; PULSE 99–129; RESP 0–35; TEMP 97.4–98.2; O2SAT 89–100
--- NOTE | 2025-08-20 00:03 | DVH ---
CHEST RADIOGRAPH Indication: IABP PLACEMENT Technique: Single frontal view of the chest was obtained COMPARISON: XY CHEST PORTABLE on DOS: 08/19/25, XY CHEST XRAY 1 VIEW on DOS: 08/18/25, XY CHEST PORTABL E on DOS: 08/18/25 FINDINGS: Lines and Tubes: None Lungs: Moderate diffuse increased prominence of the pulmonary vasculature. No focal consolidation. Pleura: No effusion. No pneumothorax. Cardiomediastinal contours: Cardiomegaly. Bones: Unremarkable IMPRESSION: 1. Cardiomegaly with moderate pulmonary vascular congestion.
[2025-08-20 00:13] LABS: Base Excess -0.5 mmol/L (-2.0-3.0)
[2025-08-20 04:07] LABS: Hematocrit 41.5 % (41.0-53.0); Hemoglobin 14.6 g/dL (13.5-17.5); Mean Corpuscular Hemoglobin 33.5 pg (28.0-32.0); Mean Corpuscular Volume 95.0 fL (80.0-100.0); Nucleated Red Blood Cells % 0.0 %
[2025-08-20 04:10] LABS: INR 1.47 (0.9-1.15); Partial Thromboplastin Time 47.1 SEC (24.5-34.5); Prothrombin Time 15.0 sec (9.3-11.8)
[2025-08-20 04:19] LABS: Albumin 3.6 g/dL (3.2-4.8); Alkaline Phosphatase 65 U/L (46-116); Anion Gap 10 (5-15); BUN/Creatinine Ratio 34.9 (10.0-20.0); Bilirubin, Total 1.1 mg/dL (0.2-1.0); Carbon Dioxide 24 mmol/L (20-31); Chloride 103 mmol/L (98-107); Potassium 3.7 mmol/L (3.5-5.1); Sodium 137 mmol/L (136-145); Total Protein 6.2 g/dL (5.7-8.2)
[2025-08-20 04:20] LABS: Alanine Aminotransferase 456 U/L (7-40); Blood Urea Nitrogen 45 mg/dL (9-23); Calcium 8.2 mg/dL (8.7-10.4); Glucose 172 mg/dL (74-106)
[2025-08-20] MEDS: HEPARIN DRIP/D5W 100UNITS/ML 250 ML IV SCH (04:46)
[2025-08-20] MEDS ORDERED: ALBUTEROL SULF 2.5 MG/0.5ML(0.5%) NEB SOLN NEB SCH (08:30)
[2025-08-20] MEDS ORDERED: IPRATROPIUM BROM 0.5 MG/2.5ML INH SOL NEB SCH (08:30)
--- NOTE | 2025-08-20 09:40 | DVH ---
CLINICAL HISTORY: Transaminitis TECHNIQUE: Transabdominal sonogram was performed of the right upper quadrant. COMPARISON: US KIDNEY on DOS: 08/18/25 FINDINGS: The liver is increased in echogenicity. There is no focal parenchymal abnormality. No intrahepatic b iliary ductal dilatation is present. The liver measures 14.7 cm. The gallbladder is normal with no evidence for stones or wall thickening. The common bile duct is borderline dilated, measuring 7 mm. The partially visualized pancreas is grossly unremarkable. The right kidney is normal in echogenicity and measures 10.8 cm in length. There is no evidence for h ydronephrosis or calculi. IMPRESSION: Borderline dilated 7 mm common duct. Please correlate with laboratory values and consider MRCP if war ranted. Diffuse hepatic steatosis.
--- NOTE | 2025-08-20 09:54 | ECG ---
[facility] Test Date: 2025-08-19 Test Time: 23:55:15 Pat Name: BRIGIDA SHAW Department: icu Room: [address] [place] [address] A Gender: M Admitting Manager: lyndsey : 1960 Requested By: MICHELLE VIGIL Order Number: [id number] Reading MD: Cedric Cordoba Measurements Intervals [place] Rate: 116 P: 0 AK: 0 QRS: -75 QRSD: 148 T: 64 QT: 393 QTc: 547 Interpretive Statements Junctional tachycardia Nonspecific IVCD with LAD Probable inferior infarct, recent Anterior infarct, old Lateral leads are also involved Baseline wander in lead(s) V4 Electronically Signed On 08-22-2025 21:08:06 PDT by Cedric Cordoba Please click the below link to view image of tracing.
[2025-08-20] MEDS: LIDOCAINE 5% TOPICAL PATCH TOP SCH (10:43)
[2025-08-20 11:36] LABS: INR 1.43 (0.9-1.15); Partial Thromboplastin Time 58.1 SEC (24.5-34.5); Prothrombin Time 14.6 sec (9.3-11.8)
--- NOTE | 2025-08-20 12:06 | DVHPNRES ---
Progress Note Date Seen: Aug 20, 2025 Resident Creating Document: JAYCE HUNT RESIDENT Has the PT tested + for MRSA If YES, has PT been informed?: Yes Medical Necessity Reason Pt with a Central, PICC or Fol: Yes (Right groin catheter) The following are medically ne: Dawson Catheter Subjective Review of Systems A 65-year-old [place]ish-speaking man with a past medical history including diabetes mellitus and hypertension who presents to ED with concern for cardiac symptoms . 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 Despite attempting to rest at home, his symptoms persisted. Pt remained mostly in bed throughout the day and began developing shortness of breath around the same time (11 AM). By 10 PM, he experienced increased difficulty breathing. He was brought in for evaluation 08/18/2025 around 5 AM. Patient history of ICU admission 3/4 years ago possible sting bite.In the ED, the patient was noted to be hypotensive (BP 92/69) and tachycardic. Initial labs showed WBC 13.8, potassium 5.6, creatinine 2.90, glucose 339, a markedly elevated troponin >25,000 and BS is elevated at 356. Past Medical History: DM2, hypertension. Prior ICU admission with intubation 34 years ago for an unclear condition (possibly after a bee sting, per son) Past Surgical History: None Allergies: No known drug allergies. Family History: Positive for heart disease; multiple relatives including his siblings and grandmother who had heart attacks. Social History: Nonsmoker. No alcohol or illicit drug use. HOME MEDICATION: metformin, simvastatin 08/20 : Seen and evaluated in bedside today. Patient medically stable transferred to higher level of care secondary to critical coronary artery disease. hydroponics worker on board. Heparin drip and intra-aortic balloon pump with monitor in place. Caution for thrombocytopenia. Objective vital signs Vital Sign Date Time Temp Pulse Resp B/P (MAP) Pulse Ox O2 Delivery O2 Flow Rate FiO2 08/20/25 11:45 105 08/20/25 10:45 21 121/75 (90) 98 140/77 (98) 08/20/25 10:00 Oxymizer 4 N/A 08/20/25 08:00 97.4 97.4 Total Intake and Output 08/19/25 08/19/25 08/20/25 15:00 23:00 07:00 Intake Total 72 ml 725.75 ml 318 ml Output Total 50 ml 900 ml 825 ml Balance 22 ml -174.25 ml -507 ml medications Current Medications Medications Dose Ordered Sig/Letitia Route Start Time Stop Time Status Last Admin Dose Admin Morphine Sulfate 2 mg Q30MP PRN IV 08/18/25 09:45 08/20/25 07:19 2 MG Aspirin 81 mg DAILY PO 08/18/25 10:15 08/20/25 09:17 81 MG Atorvastatin Calcium 40 mg HS PO 08/18/25 22:00 08/19/25 21:30 40 MG Nitroglycerin 0.4 mg Q5MINP PRN SL 08/18/25 11:45 Hydralazine HCl 5 mg PRN IV 08/18/25 22:45 Hold Diagnostic Test (Pha) 1 strip IQ4HR 08/19/25 12:00 08/20/25 11:28 1 STRIP Insulin Human Regular IQ4HR SC 08/19/25 12:00 08/20/25 11:22 4 UNITS Dextrose 50 ml UD PRN IV 08/19/25 08:15 Furosemide 40 mg DAILY IV 08/19/25 18:00 08/20/25 09:17 40 MG Lorazepam 0.5 mg Q6HP PRN IV 08/19/25 09:15 08/19/25 18:01 0.5 MG Heparin Sodium/ Dextrose 250 ml @ 11 mls/hr [id number] IV 08/20/25 04:45 08/20/25 04:46 11 MLS/HR Lidocaine 1 patch DAILY TOP 08/20/25 10:15 08/20/25 10:43 1 PATCH Albuterol 2.5 mg Q6HR NEB 08/20/25 12:00 Ipratropium [place] 0.5 mg Q6HR NEB 08/20/25 12:00 Examination Constitutional: No: Fever, Chills Eyes: No: Pain, Vision change, ENT: No: Ear pain, Ear discharge, Nose pain, Nose discharge, Nose congestion Respiratory: Bilateral air entry similar on both lung, no Wheezing, Hemoptysis, Cardiovascular: No: Chest Pain, Palpitations, Orthopnea, Paroxysmal Noc. Dyspnea, Edema, Lt Headedness Gastrointestinal: Nontender abdomen on palpation, bowel sounds present Genitourinary: No Dysuria, No Frequency, Jolynn catheter in place Musculoskeletal: Triple catheter placed on right groin Neurological: No Weakness, Numbness, Incoordination, Change in speech, Confusion, Seizures laboratory and microbiology Laboratory Tests 08/20/25 03:09 Test 08/20/25 03:09 Range/Units Serum Glucose 172 H 74-106 mg/dL Microbiology Date/Time Source Procedure Growth Status 08/18/25 12:40 Nose MRSA Screen - Final Complete 08/18/25 12:30 Urine - [place] Urine Culture - Preliminary Resulted Problem List/Assessment/Plan Problem List/Assessment/Plan A 65-year-old [place]ish-speaking man with a past medical history including diabetes mellitus and hypertension who presents to ED with concern for cardiac symptoms SOB and chest compression. .In the ED, the patient was noted to be hypotensive (BP 92/69) and tachycardic. Initial labs showed WBC 13.8, potassium 5.6, creatinine 2.90, glucose 339, a markedly elevated troponin >25,000 and BS is elevated at 356. 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 Cardiology consulted and patient went angiogram on 08/18/2025 showed critical multiple critical coronary artery disease, placement intra- aortic balloon pump and recommended patient need to transferred higher level of care. NEUROLOGY Patient AO x4 No focal weakness noted CARDIOVASCULAR: NSTEMI Critical multivessel coronary artery disease Placement intra-aortic balloon pump Acute systolic heart failure, EF 10% CAD with multivessel disease Cardiomegaly * Troponin more than 22952 * BNP 963.53 * Angiogram done on 08/18/2025 revealed critical multi vessel coronary artery disease * CXR-show cardiomegaly * Off Levophed, hemodynamically stable * Plan: Continue heparin drip, IABP with monitor, atorvastatin ,aspirin, Lasix, morphine as needed for chest pain PULMONARY: Acute hypoxic respiratory failure Dependence on supplemental oxygen Pulmonary edema * X-ray chest on admission-show pulmonary edema * Plan: Supplemental oxygen, currently on 4 L with Oxymizer, titrate to keep oxygen saturation >92%, breathing treatment GASTROINTESTINAL: Transaminitis Hepatic steatosis * US liver-borderline dilated 7 mm common duct, diffuse hepatic steatosis * Plan: Monitor liver function, pantoprazole for GI prophylaxis. GENITOURINARY: NEGRO secondary to hemodynamically mediated/VMN Hypocalcemia Hyperkalemia * Indwelling Dawson catheter * Acute complicated cystitis * Avoid nephrotoxic drugs * Plan: Renal function test, electrolytes HEMATOLOGY: * Leukocytosis possibly reactive/myocardial injury * No fever or any signs symptoms of infection Plan: CBC daily METABOLIC: Diabetic ketoacidosis Diabetes mellitus type 2 Metabolic acidosis Lactic acidosis Morbid obesity * Beta hydroxybutyric acid 0.410 on admission * Avoid sugar and sugar containing food * Plan: ISS, monitor blood sugar INFECTIOUS DISEASE: LEUKOCYTOSIS * Plan: Daily CBC MUSCULOSKELETAL * Patient complained low-back pain * Plan :lidocaine patch DIET: Cardiac DVT prophylax: Heparin GI prophylaxis: Protonix Bowel regimen: Lactulose Code status: Full code LINES/DRAINS/ACCESS: IV access: Right groin triple-lumen catheter Drips: S/p Levophed drip. Not on any pressor/ drip Dawson catheter: Placed on 08/18/2025 DISPOSITION: ICU Patient's status discussed with patient's son, nurse Critical care time spent more than 69 minutes, including patient care, chart review, and updating the family. Excluding any procedures Case discussed with Dr. Valero Plan discussed with: Patient, Son (Sun-Gi), Other (Nurse) My Orders My Orders Orders - JAYCE HUNT Procedure Category Date Status Time Discharge DISCHARGE 08/19/25 Transmitted 12:05 Abdomen Limited US 08/20/25 Resulted 08:40 Lidocaine 5% Topical PHA 08/20/25 In Process Patch (Lidoderm 5% 10:15 Albuterol Medneb PHA 08/20/25 In Process (Ventolin Medneb) 12:00 Ipratropium Medneb PHA 08/20/25 In Process (Atrovent Medneb) 12:00 Date of Service: Aug 20, 2025 Billing Provider: TORRES VALERO MD Common Visit Codes: [id number] CARE 30-74 MIN JAYCE HUNT Aug 20, 2025 12:06 TORRES VALERO MD Aug 21, 2025 13:34
--- NOTE | 2025-08-20 12:07 | CONS ---
Pharmacy Clinical Information: HEPARIN DRIP, ACS PROTOCOL @1030 APTT 58.1 - NO BOLUS, NO CHANGE, CONTINUE HEPARIN DRIP RATE @ 1100 UNITS/HR NEXT APTT DRAW SCHEDULED @1700 PER RX PROTOCOL CONFIRMED AND READ BACK WITH HALLIE HANLEYCO ROBERTS CHAPELY RESIDENT Aug 20, 2025 12:07
[2025-08-20] MEDS: ALBUTEROL SULF 2.5 MG/0.5ML(0.5%) NEB SOLN NEB SCH (12:59)
[2025-08-20] MEDS: IPRATROPIUM BROM 0.5 MG/2.5ML INH SOL NEB SCH (13:00)
--- NOTE | 2025-08-20 14:24 | DVH ---
INDICATION: position of aortic baloon pump TECHNIQUE: Single frontal view of the chest was obtained COMPARISON: XY CHEST PORTABLE on DOS: 08/19/25, XY CHEST PORTABLE on DOS: 08/19/25, XY CHEST XRAY 1 VIE W on DOS: 08/18/25, XY CHEST PORTABLE on DOS: 08/18/25, XY CHEST PORTABLE on DOS: 08/19/25 FINDINGS: Lines and Tubes: None Lungs: Moderate diffuse increased prominence of the pulmonary vasculature. No focal consolidation. Pleura: No effusion. No pneumothorax. Cardiomediastinal contours: Cardiomegaly. Bones: Unremarkable IMPRESSION: 1. Cardiomegaly with moderate pulmonary vascular congestion.
[2025-08-20 18:13] LABS: INR 1.36 (0.9-1.15); Partial Thromboplastin Time 55.2 SEC (24.5-34.5)
[2025-08-20 18:14] LABS: Prothrombin Time 14.0 sec (9.3-11.8)
--- NOTE | 2025-08-20 21:48 | DVHPN2 ---
Progress Note Date Seen: Aug 20, 2025 Has the PT tested + for MRSA If YES, has PT been informed?: Yes Medical Necessity Reason Pt with a Central, PICC or Fol: Yes (Right groin catheter) The following are medically ne: Dawson Catheter Subjective Patient reports: No new complaints, Other Review of Systems: Deferred Objective vital signs Vital Sign Date Time Temp Pulse Resp B/P (MAP) Pulse Ox O2 Delivery O2 Flow Rate FiO2 08/20/25 21:45 114 08/20/25 21:15 21 123/65 (84) 100 08/20/25 20:30 97.9 97.9 08/20/25 20:00 Nasal Cannula* 4 36 Total Intake and Output 08/19/25 08/19/25 08/20/25 15:00 23:00 07:00 Intake Total 72 ml 725.75 ml 318 ml Output Total 50 ml 900 ml 825 ml Balance 22 ml -174.25 ml -507 ml medications Current Medications Medications Dose Ordered Sig/Letitia Route Start Time Stop Time Status Last Admin Dose Admin Morphine Sulfate 2 mg Q30MP PRN IV 08/18/25 09:45 08/20/25 19:59 2 MG Aspirin 81 mg DAILY PO 08/18/25 10:15 08/20/25 09:17 81 MG Atorvastatin Calcium 40 mg HS PO 08/18/25 22:00 08/20/25 21:30 40 MG Nitroglycerin 0.4 mg Q5MINP PRN SL 08/18/25 11:45 Hydralazine HCl 5 mg PRN IV 08/18/25 22:45 Hold Diagnostic Test (Pha) 1 strip IQ4HR 08/19/25 12:00 08/20/25 20:06 1 STRIP Insulin Human Regular IQ4HR SC 08/19/25 12:00 08/20/25 20:07 4 UNITS Dextrose 50 ml UD PRN IV 08/19/25 08:15 Furosemide 40 mg DAILY IV 08/19/25 18:00 08/20/25 09:17 40 MG Lorazepam 0.5 mg Q6HP PRN IV 08/19/25 09:15 08/19/25 18:01 0.5 MG Heparin Sodium/ Dextrose 250 ml @ 11 mls/hr [id number] IV 08/20/25 04:45 08/20/25 13:03 11 MLS/HR Lidocaine 1 patch DAILY [facility] 08/20/25 10:15 08/20/25 10:43 1 PATCH Albuterol 2.5 mg Q6HR [facility] 08/20/25 12:00 08/20/25 18:33 2.5 MG Ipratropium [place] 0.5 mg Q6HR [facility] 08/20/25 12:00 08/20/25 18:33 0.5 MG Examination: GENERAL:Abnormal, LUNGS:Abnormal, MSK:Abnormal, NEURO:Normal laboratory and microbiology Laboratory Tests 08/20/25 03:09 Test 08/20/25 03:09 Range/Units Serum Glucose 172 H 74-106 mg/dL Microbiology Date/Time Source Procedure Growth Status 08/18/25 12:40 Nose MRSA Screen - Final Complete 08/18/25 12:30 Urine - [place] Urine Culture - Preliminary Resulted Problem List/Assessment/Plan Problem List/Assessment/Plan 1) Hemodynamically mediated NEGRO/VMN in setting of acute MD 2) hyperkalemia 3) acute MD , currently on IABP support 4) metabolic acidosis 5) history of diabetes Recommendations Continue with IV Lasix 40 mg daily Nonoliguric Pending higher level of care transfer We will follow closely Renal function better Plan discussed with: Other ROSE TAYLOR MD Aug 20, 2025 21:48
[2025-08-21] VITALS (153 sets, daily range): BP systolic 91–168; BP diastolic 39–97; PULSE 64–135; RESP 12–73; TEMP 97.6–98.5; O2SAT 77–100
[2025-08-21] MEDS: NOREPINEPHRINE 8 MG/250ML KIT 250 ML IV SCH (00:30)
[2025-08-21 03:31] LABS: Hematocrit 40.8 % (41.0-53.0); Hemoglobin 13.9 g/dL (13.5-17.5); Mean Corpuscular Hemoglobin 32.7 pg (28.0-32.0); Mean Corpuscular Volume 95.5 fL (80.0-100.0); Nucleated Red Blood Cells % 0.0 %
[2025-08-21 03:55] LABS: Albumin 3.4 g/dL (3.2-4.8); Alkaline Phosphatase 66 U/L (46-116); Anion Gap 10 (5-15); BUN/Creatinine Ratio 33.1 (10.0-20.0); Carbon Dioxide 28 mmol/L (20-31); Chloride 99 mmol/L (98-107); Potassium 4.0 mmol/L (3.5-5.1); Sodium 137 mmol/L (136-145); Total Protein 6.1 g/dL (5.7-8.2)
[2025-08-21 03:59] LABS: Alanine Aminotransferase 286 U/L (7-40); Bilirubin, Total 1.3 mg/dL (0.2-1.0); Blood Urea Nitrogen 40 mg/dL (9-23); Calcium 8.1 mg/dL (8.7-10.4); Glucose 189 mg/dL (74-106)
--- NOTE | 2025-08-21 05:21 | DVH ---
CHEST RADIOGRAPH Indication: location of IABP. Technique: Single frontal view of the chest was obtained Comparison: XY CHEST PORTABLE on DOS: 08/20/25 FINDINGS: Lines and Tubes: The intra-aortic balloon pump projects 2.5 cm below the superior margin of the aorti c arch. Lungs: Diffuse bilateral opacities similar to prior study. Pleura: No effusion. No pneumothorax. Cardiomediastinal contours: Stable cardiomegaly. Bones: No acute osseous abnormality. IMPRESSION: 1. The intra-aortic balloon pump projects 2.5 cm below the superior margin of the aortic arch. Stabl e pulmonary congestion.
--- NOTE | 2025-08-21 07:38 | DVHPN2 ---
Progress Note Date Seen: Aug 21, 2025 Has the PT tested + for MRSA If YES, has PT been informed?: Yes Medical Necessity Reason Pt with a Central, PICC or Fol: Yes (Right groin catheter) The following are medically ne: Dawson Catheter Objective vital signs Vital Sign Date Time Temp Pulse Resp B/P (MAP) Pulse Ox O2 Delivery O2 Flow Rate FiO2 08/21/25 07:13 100 Nasal Cannula* 4 36 08/21/25 07:12 108 22 08/21/25 07:00 159/83 (108) 08/21/25 05:30 98.1 98.1 Total Intake and Output 08/20/25 08/20/25 08/21/25 15:00 23:00 07:00 Intake Total 88 ml 568 ml 449.25 ml Output Total 1050 ml 600 ml Balance 88 ml -482 ml -150.75 ml medications Current Medications Medications Dose Ordered Sig/Letitia Route Start Time Stop Time Status Last Admin Dose Admin Morphine Sulfate 2 mg Q30MP PRN IV 08/18/25 09:45 08/21/25 05:17 2 MG Aspirin 81 mg DAILY PO 08/18/25 10:15 08/20/25 09:17 81 MG Atorvastatin Calcium 40 mg HS PO 08/18/25 22:00 08/20/25 21:30 40 MG Nitroglycerin 0.4 mg Q5MINP PRN SL 08/18/25 11:45 Hydralazine HCl 5 mg PRN IV 08/18/25 22:45 Hold Diagnostic Test (Pha) 1 strip IQ4HR 08/19/25 12:00 08/21/25 04:09 1 STRIP Insulin Human Regular IQ4HR SC 08/19/25 12:00 08/21/25 04:09 4 UNITS Dextrose 50 ml UD PRN IV 08/19/25 08:15 Furosemide 40 mg DAILY IV 08/19/25 18:00 08/20/25 09:17 40 MG Lorazepam 0.5 mg Q6HP PRN IV 08/19/25 09:15 08/19/25 18:01 0.5 MG Heparin Sodium/ Dextrose 250 ml @ 11 mls/hr [id number] IV 08/20/25 04:45 08/20/25 13:03 11 MLS/HR Lidocaine 1 patch DAILY TOP 08/20/25 10:15 08/20/25 10:43 1 PATCH Albuterol 2.5 mg Q6HR NEB 08/20/25 12:00 08/21/25 00:39 2.5 MG Ipratropium [place] 0.5 mg Q6HR NEB 08/20/25 12:00 08/21/25 07:08 0.5 MG Norepinephrine Bitartrate 250 ml @ 3.75 mls/hr Q24H IV 08/21/25 00:30 08/21/25 00:30 3.75 MLS/HR Examination: GENERAL:Abnormal, HEENT:Abnormal, LUNGS:Abnormal, CVS:Abnormal, ABDOMEN:Abnormal laboratory and microbiology Laboratory Tests 08/21/25 02:52 Test 08/21/25 02:52 Range/Units Serum Glucose 189 H 74-106 mg/dL Microbiology Date/Time Source Procedure Growth Status 08/18/25 12:40 Nose MRSA Screen - Final Complete 08/18/25 12:30 Urine - [place] Urine Culture - Preliminary Resulted Problem List/Assessment/Plan Problem List/Assessment/Plan cardio shock_---cont iabp, bp 170s now, consider afterload reduction with hydralazine, LVEF 10%, diuretics 1x a day now, cont heparin nstemi---asa, heparin , start statin, eval at tertiary center for candidacy of revasc tachycardia--HR 110s , shock , watch for arrhythmias RENAL ckd--improved 2.9 to 1.6 , cut back on lasix today , renal consult bicarbonate better , lactate pending PULM on 5L o2 , pulm eval, abg stable GI can give prophy cardiac diet ENDO dc insulin gtt, sliding scale per hospitalist ID [id number], no fevers, defer to primary 60 mins critical care time spent THE INSURANCE IS CAUSING MAJOR PROBLEMS WHICH WILL POSSIBLY RESULT IN MAJOR ADVERSE EVENTS HIS INSURANCE IS DELAYING IS HIS CARE CONSTANTLY I SPOKE TO AN ASTLUIS ENRIQUE ORDER MAKE UP CLERK NOW THE PATIENT IS NOT BEING TX TO [facility] HIS CV RISK OR MORBIDITY--SOLELY RESPONSIBLE BY INSURANCE HE HAS SIG IMPROVED HERE HOWEVER HIS PLTS ARE DROPPING HES PERFUSING WELL POSSIBLE IABP REMOVAL IN 24 HOURS IF INSURANCE REFUSES TO PROVIDE PT ADEQUATE CARE AT [facility] d/w pt and RN 40 mins critical care time spent Plan discussed with: Patient My Orders My Orders Orders - LISA LEI MD Procedure Category Date Status Time Heparin Per Pharmacy [facility] 08/20/25 In Process Protocol 12:07 Heparin Per Pharmacy [facility] 08/20/25 In Process Protocol 23:00 PTPTT LAB 08/21/25 Logged 22:00 Norepinephrine 8 PHA 08/21/25 In Process Mg/250ml Kit 00:30 Date of Service: Aug 21, 2025 Billing Provider: LISA LEI MD Common Visit Codes: NOT BILLABLE LISA LEI MD Aug 21, 2025 07:38
--- NOTE | 2025-08-21 10:48 | DVHPNRES ---
Progress Note Date Seen: Aug 21, 2025 Resident Creating Document: JAYCE HUNT RESIDENT Has the PT tested + for MRSA If YES, has PT been informed?: Yes Medical Necessity Reason Pt with a Central, PICC or Fol: Yes (Right groin catheter) The following are medically ne: Dawson Catheter Subjective Review of Systems A 65-year-old Kazakh-speaking man with a past medical history including diabetes mellitus and hypertension who presents to ED with concern for cardiac symptoms . 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 Despite attempting to rest at home, his symptoms persisted. Pt remained mostly in bed throughout the day and began developing shortness of breath around the same time (11 AM). By 10 PM, he experienced increased difficulty breathing. He was brought in for evaluation 08/18/2025 around 5 AM. Patient history of ICU admission 3/4 years ago possible sting bite.In the ED, the patient was noted to be hypotensive (BP 92/69) and tachycardic. Initial labs showed WBC 13.8, potassium 5.6, creatinine 2.90, glucose 339, a markedly elevated troponin >25,000 and BS is elevated at 356. Past Medical History: DM2, hypertension. Prior ICU admission with intubation 34 years ago for an unclear condition (possibly after a bee sting, per son) Past Surgical History: None Allergies: No known drug allergies. Family History: Positive for heart disease; multiple relatives including his siblings and grandmother who had heart attacks. Social History: Nonsmoker. No alcohol or illicit drug use. HOME MEDICATION: metformin, simvastatin 08/20 : Seen and evaluated in bedside today. Patient medically stable transferred to higher level of care secondary to critical coronary artery disease. bench worker apprentice on board. Heparin drip and intra-aortic balloon pump with monitor in place. Caution for thrombocytopenia. 08/21: Seen and evaluated in bedside. Patient denies any acute distress like chest pain ,shortness of breaths. Count heparin drip watch for thrombocytopenia. Pending transfer higher level of care the patient possible CABG. Objective vital signs Vital Sign Date Time Temp Pulse Resp B/P (MAP) Pulse Ox O2 Delivery O2 Flow Rate FiO2 08/21/25 10:15 116 14 161/95 (117) 89 08/21/25 10:00 Nasal Cannula* 2 28 08/21/25 08:00 98.4 98.4 Total Intake and Output 08/20/25 08/20/25 08/21/25 15:00 23:00 07:00 Intake Total 88 ml 568 ml 449.25 ml Output Total 1050 ml 600 ml Balance 88 ml -482 ml -150.75 ml medications Current Medications Medications Dose Ordered Sig/Letitia Route Start Time Stop Time Status Last Admin Dose Admin Morphine Sulfate 2 mg Q30MP PRN IV 08/18/25 09:45 08/21/25 05:17 2 MG Aspirin 81 mg DAILY PO 08/18/25 10:15 08/21/25 09:18 81 MG Atorvastatin Calcium 40 mg HS PO 08/18/25 22:00 08/20/25 21:30 40 MG Nitroglycerin 0.4 mg Q5MINP PRN SL 08/18/25 11:45 Hydralazine HCl 5 mg PRN IV 08/18/25 22:45 Hold Diagnostic Test (Pha) 1 strip IQ4HR 08/19/25 12:00 08/21/25 09:20 1 STRIP Insulin Human Regular IQ4HR SC 08/19/25 12:00 08/21/25 09:22 2 UNITS Dextrose 50 ml UD PRN IV 08/19/25 08:15 Furosemide 40 mg DAILY IV 08/19/25 18:00 08/21/25 09:20 40 MG Lorazepam 0.5 mg Q6HP PRN IV 08/19/25 09:15 08/19/25 18:01 0.5 MG Heparin Sodium/ Dextrose 250 ml @ 11 mls/hr [id number] IV 08/20/25 04:45 08/20/25 13:03 11 MLS/HR Lidocaine 1 patch DAILY TOP 08/20/25 10:15 08/20/25 10:43 1 PATCH Albuterol 2.5 mg Q6HR NEB 08/20/25 12:00 08/21/25 07:08 2.5 MG Ipratropium [place] 0.5 mg Q6HR NEB 08/20/25 12:00 08/21/25 07:08 0.5 MG Norepinephrine Bitartrate 250 ml @ 3.75 mls/hr Q24H IV 08/21/25 00:30 08/21/25 00:30 3.75 MLS/HR Ergocalciferol 50,000 unit Q7D PO 08/21/25 10:15 UNV Examination Constitutional: No: Fever, Chills, right groin triple-lumen catheter Eyes: No: Pain, Vision change, ENT: No: Ear pain, Ear discharge, Nose pain, Nose discharge, Nose congestion Respiratory: Bilateral air entry similar on both lung, no Wheezing, Hemoptysis, Cardiovascular: No: Chest Pain, Palpitations, Orthopnea, Paroxysmal Noc. Dyspnea, Edema, Lt Headedness Gastrointestinal: Nontender abdomen on palpation, bowel sounds present Genitourinary: No Dysuria, No Frequency, Jolynn catheter in place Musculoskeletal: Triple catheter placed on right groin Neurological: No Weakness, Numbness, Incoordination, Change in speech, Confusion, Seizures laboratory and microbiology Laboratory Tests 08/21/25 02:52 Test 08/21/25 02:52 Range/Units Serum Glucose 189 H 74-106 mg/dL Microbiology Date/Time Source Procedure Growth Status 08/18/25 12:40 Nose MRSA Screen - Final Complete 08/18/25 12:30 Urine - [place] Urine Culture - Final Complete Problem List/Assessment/Plan Problem List/Assessment/Plan A 65-year-old Kazakh-speaking man with a past medical history including diabetes mellitus and hypertension who presents to ED with concern for cardiac symptoms SOB and chest compression. .In the ED, the patient was noted to be hypotensive (BP 92/69) and tachycardic. Initial labs showed WBC 13.8, potassium 5.6, creatinine 2.90, glucose 339, a markedly elevated troponin >25,000 and BS is elevated at 356. Patient went to laboratory worker/initiate chest pain protocol on 08/18/2025. Cardiology consulted and patient went angiogram on 08/18/2025 showed critical multiple critical coronary artery disease, placement intra- aortic balloon pump and recommended patient need to transferred higher level of care. NEUROLOGY Patient AO x4 No focal weakness noted CARDIOVASCULAR: NSTEMI Critical multivessel coronary artery disease Placement intra-aortic balloon pump Acute systolic heart failure, EF 10% CAD with multivessel disease Cardiomegaly * Troponin more than 03072 * BNP 963.53 * Angiogram done on 08/10/2025 revealed critical multi vessel coronary artery disease * CXR-show cardiomegaly * Off Levophed, hemodynamically stable * ITBP in position as chest x-ray * Plan: Continue heparin drip, IABP with monitor, atorvastatin ,aspirin, Lasix, morphine as needed for chest pain PULMONARY: Acute hypoxic respiratory failure Dependence on supplemental oxygen Pulmonary edema * X-ray chest on admission-show pulmonary edema * Plan: Supplemental oxygen, currently on 4 L with Oxymizer, titrate to keep oxygen saturation >92%, breathing treatment GASTROINTESTINAL: Transaminitis Hepatic steatosis * US liver-borderline dilated 7 mm common duct, diffuse hepatic steatosis * Plan: Monitor liver function, pantoprazole for GI prophylaxis. GENITOURINARY: NEGRO secondary to hemodynamically mediated/VMN Hypocalcemia Hyperkalemia * Indwelling Dawson catheter * Acute complicated cystitis * Avoid nephrotoxic drugs * Plan: Renal function test, electrolytes HEMATOLOGY: Leukocytosis possibly reactive/myocardial injury Thrombocytopenia * No fever or any signs symptoms of infection Plan: CBC daily Monitor for any signs symptoms of bleeding. METABOLIC: Diabetic ketoacidosis Diabetes mellitus type 2 Metabolic acidosis Lactic acidosis Vitamin-D deficiency Morbid obesity * Beta hydroxybutyric acid 0.410 on admission * Avoid sugar and sugar containing food * Plan: ISS, monitor blood sugar * Continue vitamin-D 00041 units p.o. Q weekly INFECTIOUS DISEASE: LEUKOCYTOSIS * Plan: Daily CBC MUSCULOSKELETAL * Patient complained low-back pain * Plan :lidocaine patch DIET: Cardiac DVT prophylax: Heparin GI prophylaxis: Protonix Bowel regimen: Lactulose Code status: Full code LINES/DRAINS/ACCESS: IV access: Right groin triple-lumen catheter Drips: S/p Levophed drip. Not on any pressor/ drip Dawson catheter: Placed on 08/18/2025 DISPOSITION: ICU Patient's status discussed with patient's son, nurse Critical care time spent more than 61 minutes, including patient care, chart review, and updating the family. Excluding any procedures Pending transfer higher level of care pending insurance approval. bench worker apprentice on board, we will keep monitoring. Case discussed with Dr. Valero Plan discussed with: Patient, Son, Other (Nurse) My Orders My Orders Orders - JAYCE HUNT RESIDENT Procedure Category Date Status Time Chest Portable XY 08/20/25 Resulted 13:22 Chest Portable XY 08/21/25 Resulted 04:00 Ergocalciferol PHA 08/21/25 Logged (Vitamin D 50,000 10:15 Date of Service: Aug 21, 2025 Billing Provider: TORRES VALERO MD Common Visit Codes: [id number] CARE 30-74 MIN JAYCE HUNT RESIDENT Aug 21, 2025 10:48 TORRES VALERO MD Aug 22, 2025 11:24
[2025-08-21] MEDS: ERGOCALCIFEROL 50,000 UNIT(1.25MG) CAP PO SCH (12:16)
--- NOTE | 2025-08-21 17:03 | DVHPN2 ---
Progress Note Date Seen: Aug 21, 2025 Has the PT tested + for MRSA If YES, has PT been informed?: Yes Medical Necessity Reason Pt with a Central, PICC or Fol: Yes (Right groin catheter) The following are medically ne: Dawson Catheter Subjective Patient reports: No new complaints, Feels better Review of Systems: Deferred Objective vital signs Vital Sign Date Time Temp Pulse Resp B/P (MAP) Pulse Ox O2 Delivery O2 Flow Rate FiO2 08/21/25 16:45 113 139/76 (97) 100 08/21/25 16:30 20 08/21/25 16:00 Room Air* 0 21 08/21/25 16:00 98.1 98.1 Total Intake and Output 08/20/25 08/20/25 08/21/25 15:00 23:00 07:00 Intake Total 88 ml 568 ml 449.25 ml Output Total 1050 ml 700 ml Balance 88 ml -482 ml -250.75 ml medications Current Medications Medications Dose Ordered Sig/Letitia Route Start Time Stop Time Status Last Admin Dose Admin Morphine Sulfate 2 mg Q30MP PRN IV 08/18/25 09:45 08/21/25 05:17 2 MG Aspirin 81 mg DAILY PO 08/18/25 10:15 08/21/25 09:18 81 MG Atorvastatin Calcium 40 mg HS PO 08/18/25 22:00 08/20/25 21:30 40 MG Nitroglycerin 0.4 mg Q5MINP PRN SL 08/18/25 11:45 Hydralazine HCl 5 mg PRN IV 08/18/25 22:45 Hold Diagnostic Test (Pha) 1 strip IQ4HR 08/19/25 12:00 08/21/25 16:48 1 STRIP Insulin Human Regular IQ4HR SC 08/19/25 12:00 08/21/25 16:56 4 UNITS Dextrose 50 ml UD PRN IV 08/19/25 08:15 Furosemide 40 mg DAILY IV 08/19/25 18:00 08/21/25 09:20 40 MG Lorazepam 0.5 mg Q6HP PRN IV 08/19/25 09:15 08/19/25 18:01 0.5 MG Heparin Sodium/ Dextrose 250 ml @ 11 mls/hr [id number] IV 08/20/25 04:45 08/21/25 12:53 11 MLS/HR Lidocaine 1 patch DAILY TOP 08/20/25 10:15 08/20/25 10:43 1 PATCH Albuterol 2.5 mg Q6HR [facility] 08/20/25 12:00 08/21/25 12:11 2.5 MG Ipratropium [place] 0.5 mg Q6HR NEB 08/20/25 12:00 08/21/25 12:11 0.5 MG Norepinephrine Bitartrate 250 ml @ 3.75 mls/hr Q24H IV 08/21/25 00:30 08/21/25 00:30 3.75 MLS/HR Ergocalciferol 50,000 unit Q7D PO 08/21/25 10:15 08/21/25 12:16 50,000 UNIT Examination: GENERAL:Normal, HEENT:Normal, NECK:Normal, LUNGS:Normal, CVS:Normal, ABDOMEN:Normal, MSK:Normal, SKIN:Normal, NEURO:Normal, :Normal laboratory and microbiology Laboratory Tests 08/21/25 02:52 Test 08/21/25 02:52 Range/Units Serum Glucose 189 H 74-106 mg/dL Microbiology Date/Time Source Procedure Growth Status 08/18/25 12:40 Nose MRSA Screen - Final Complete 08/18/25 12:30 Urine - [place] Urine Culture - Final Complete Problem List/Assessment/Plan Problem List/Assessment/Plan 1) Hemodynamically mediated NEGRO/VMN in setting of acute FL 2) hyperkalemia 3) acute FL , currently on IABP support 4) metabolic acidosis 5) history of diabetes Recommendations Continue with IV Lasix 40 mg daily Nonoliguric Pending higher level of care transfer We will follow closely Renal function better Plan discussed with: Patient Dietary Evaluation Review Comments: Nutrition Recommendation: 1) Consider Glucerna 240ml BID 2) Consider CCHO 60gm +cardiac diet if PO intake >75% 3) Monitor PO intake, lab values, weight trend, and I/O Expected Outcomes/Goals: To meet >75% estimated needs Lab values to improve Fu 3-5 days ROSE TAYLOR MD Aug 21, 2025 17:03
[2025-08-21 22:28] LABS: INR 1.33 (0.9-1.15); Partial Thromboplastin Time 47.3 SEC (24.5-34.5); Prothrombin Time 13.7 sec (9.3-11.8)
[2025-08-21] MEDS: HEPARIN DRIP/D5W 100UNITS/ML 250 ML IV SCH (22:58)
[2025-08-22] VITALS (131 sets, daily range): BP systolic 71–172; BP diastolic 39–104; PULSE 98–136; RESP 13–36; TEMP 97.6–99.4; O2SAT 81–100
[2025-08-22 03:46] LABS: Hematocrit 40.0 % (41.0-53.0); Hemoglobin 13.9 g/dL (13.5-17.5); Mean Corpuscular Hemoglobin 33.4 pg (28.0-32.0); Mean Corpuscular Volume 96.1 fL (80.0-100.0); Nucleated Red Blood Cells % 0.1 %
[2025-08-22 04:02] LABS: Albumin 3.4 g/dL (3.2-4.8); Alkaline Phosphatase 62 U/L (46-116); Anion Gap 8 (5-15); BUN/Creatinine Ratio 26.2 (10.0-20.0); Carbon Dioxide 28 mmol/L (20-31); Chloride 102 mmol/L (98-107); INR 1.31 (0.9-1.15); Partial Thromboplastin Time 58.3 SEC (24.5-34.5); Potassium 3.7 mmol/L (3.5-5.1); Prothrombin Time 13.5 sec (9.3-11.8); Sodium 138 mmol/L (136-145); Total Protein 6.0 g/dL (5.7-8.2)
[2025-08-22 04:03] LABS: Alanine Aminotransferase 181 U/L (7-40); Blood Urea Nitrogen 33 mg/dL (9-23); Calcium 8.3 mg/dL (8.7-10.4); Glucose 135 mg/dL (74-106)
[2025-08-22 04:20] LABS: Bilirubin, Total 1.3 mg/dL (0.2-1.0)
--- NOTE | 2025-08-22 07:55 | DVHPNRES ---
Progress Note Date Seen: Aug 22, 2025 Resident Creating Document: JAYCE HUNT RESIDENT Has the PT tested + for MRSA If YES, has PT been informed?: Yes Medical Necessity Reason Pt with a Central, PICC or Fol: Yes (Right groin catheter) The following are medically ne: Dawson Catheter Subjective Review of Systems A 65-year-old Turkmen-speaking man with a past medical history including diabetes mellitus and hypertension who presents to ED with concern for cardiac symptoms . 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 Despite attempting to rest at home, his symptoms persisted. Pt remained mostly in bed throughout the day and began developing shortness of breath around the same time (11 AM). By 10 PM, he experienced increased difficulty breathing. He was brought in for evaluation 08/18/2025 around 5 AM. Patient history of ICU admission 3/4 years ago possible sting bite.In the ED, the patient was noted to be hypotensive (BP 92/69) and tachycardic. Initial labs showed WBC 13.8, potassium 5.6, creatinine 2.90, glucose 339, a markedly elevated troponin >25,000 and BS is elevated at 356. Past Medical History: DM2, hypertension. Prior ICU admission with intubation 34 years ago for an unclear condition (possibly after a bee sting, per son) Past Surgical History: None Allergies: No known drug allergies. Family History: Positive for heart disease; multiple relatives including his siblings and grandmother who had heart attacks. Social History: Nonsmoker. No alcohol or illicit drug use. HOME MEDICATION: metformin, simvastatin 08/20 : Seen and evaluated in bedside today. Patient medically stable transferred to higher level of care secondary to critical coronary artery disease. field worker on board. Heparin drip and intra-aortic balloon pump with monitor in place. Caution for thrombocytopenia. 08/21: Seen and evaluated in bedside. Patient denies any acute distress like chest pain ,shortness of breaths. Count heparin drip watch for thrombocytopenia. Pending transfer higher level of care the patient possible CABG. 08/22: Patient seen and evaluated in bedside today. Waiting for transfer higher level of care presumed need CABG. Due to insurance issue, waiting call from facilities. As per Cardiology, hold heparin for now possible removal of intra-aortic balloon pump. Objective vital signs Vital Sign Date Time Temp Pulse Resp B/P (MAP) Pulse Ox O2 Delivery O2 Flow Rate FiO2 08/22/25 07:41 119 26 96 Nasal Cannula* 2 28 08/22/25 07:00 139/74 (95) 08/22/25 05:15 98.1 98.1 Total Intake and Output 08/21/25 08/21/25 08/22/25 15:00 23:00 07:00 Intake Total 539 ml 190 ml 402 ml Output Total 1285 ml 120 ml 880 ml Balance -746 ml 70 ml -478 ml medications Current Medications Medications Dose Ordered Sig/Letitia Route Start Time Stop Time Status Last Admin Dose Admin Morphine Sulfate 2 mg Q30MP PRN IV 08/18/25 09:45 08/21/25 21:58 2 MG Aspirin 81 mg DAILY PO 08/18/25 10:15 08/21/25 09:18 81 MG Atorvastatin Calcium 40 mg HS PO 08/18/25 22:00 08/21/25 21:58 40 MG Nitroglycerin 0.4 mg Q5MINP PRN SL 08/18/25 11:45 Hydralazine HCl 5 mg PRN IV 08/18/25 22:45 Hold Diagnostic Test (Pha) 1 strip IQ4HR 08/19/25 12:00 08/22/25 04:29 1 STRIP Insulin Human Regular IQ4HR SC 08/19/25 12:00 08/22/25 00:20 2 UNITS Dextrose 50 ml UD PRN IV 08/19/25 08:15 Furosemide 40 mg DAILY IV 08/19/25 18:00 08/21/25 09:20 40 MG Lorazepam 0.5 mg Q6HP PRN IV 08/19/25 09:15 08/19/25 18:01 0.5 MG Lidocaine 1 patch DAILY TOP 08/20/25 10:15 08/20/25 10:43 1 PATCH Albuterol 2.5 mg Q6HR NEB 08/20/25 12:00 08/22/25 07:00 2.5 MG Ipratropium [place] 0.5 mg Q6HR NEB 08/20/25 12:00 08/22/25 07:00 0.5 MG Norepinephrine Bitartrate 250 ml @ 3.75 mls/hr Q24H IV 08/21/25 00:30 08/21/25 00:30 3.75 MLS/HR Ergocalciferol 50,000 unit Q7D PO 08/21/25 10:15 08/21/25 12:16 50,000 UNIT Examination Constitutional: No: Fever, Chills, right groin triple-lumen catheter Eyes: No: Pain, Vision change, ENT: No: Ear pain, Ear discharge, Nose pain, Nose discharge, Nose congestion Respiratory: Bilateral air entry similar on both lung, no Wheezing, Hemoptysis, Cardiovascular: No: Chest Pain, Palpitations, Orthopnea, Paroxysmal Noc. Dyspnea, Edema Gastrointestinal: Nontender abdomen on palpation, bowel sounds present Genitourinary: No Dysuria, No Frequency, Jolynn catheter in place Musculoskeletal: Triple catheter placed on right groin Neurological: No Weakness, Numbness, Incoordination, Change in speech, Confusion laboratory and microbiology Laboratory Tests 08/22/25 02:47 Test 08/22/25 02:47 Range/Units Serum Glucose 135 H 74-106 mg/dL Microbiology Date/Time Source Procedure Growth Status 08/18/25 12:40 Nose MRSA Screen - Final Complete 08/18/25 12:30 Urine - [place] Urine Culture - Final Complete Problem List/Assessment/Plan Problem List/Assessment/Plan A 65-year-old Turkmen-speaking man with a past medical history including diabetes mellitus and hypertension who presents to ED with concern for cardiac symptoms SOB and chest compression. .In the ED, the patient was noted to be hypotensive (BP 92/69) and tachycardic. Initial labs showed WBC 13.8, potassium 5.6, creatinine 2.90, glucose 339, a markedly elevated troponin >25,000 and BS is elevated at 356. Patient went to aquatic life laborer/initiate chest pain protocol on 08/18/2025. Cardiology consulted and patient went angiogram on 08/18/2025 showed critical multiple critical coronary artery disease, placement intra- aortic balloon pump and recommended patient need to transferred higher level of care. NEUROLOGY Patient AO x4 No focal weakness noted CARDIOVASCULAR: NSTEMI Critical multivessel coronary artery disease Placement intra-aortic balloon pump Acute systolic heart failure, EF 10% CAD with multivessel disease Cardiomegaly * Troponin more than 45064 on admission * BNP 963.53 * Angiogram done on 08/10/2025 revealed critical multi vessel coronary artery disease * CXR-show cardiomegaly * Off Levophed, hemodynamically stable * ITBP in position as chest x-ray * Plan: Hold heparin drip now possible removal IABP with monitor, atorvastatin ,aspirin, Lasix, morphine as needed for chest pain PULMONARY: Acute hypoxic respiratory failure Dependence on supplemental oxygen Pulmonary edema * X-ray chest on admission-show pulmonary edema * Plan: Supplemental oxygen, currently on 2 L with Oxymizer, titrate to keep oxygen saturation >92%, breathing treatment. GASTROINTESTINAL: Transaminitis Hepatic steatosis Constipation * US liver-borderline dilated 7 mm common duct, diffuse hepatic steatosis * Plan: Monitor liver function, pantoprazole , lactulose. GENITOURINARY: NEGRO secondary to hemodynamically mediated/VMN Hypocalcemia Hyperkalemia * Dawson catheter * Acute complicated cystitis * Avoid nephrotoxic drugs * Plan: Renal function test, electrolytes HEMATOLOGY: Leukocytosis possibly reactive/myocardial injury Thrombocytopenia * No fever or any signs symptoms of infection Plan: CBC daily Monitor for any signs symptoms of bleeding. METABOLIC: Diabetic ketoacidosis Diabetes mellitus type 2 Metabolic acidosis Lactic acidosis Vitamin-D deficiency Hypocalcemia Morbid obesity * Beta hydroxybutyric acid 0.410 on admission * [id number] * Avoid sugar and sugar containing food * Plan: ISS, monitor blood sugar * Continue vitamin-D 52386 units p.o. Q weekly INFECTIOUS DISEASE: SIRS (tachy,leukocytosis) LEUKOCYTOSIS * Plan: Daily CBC MUSCULOSKELETAL * Patient complained low-back pain * Plan :lidocaine patch DIET: Cardiac DVT prophylax: hold Heparin now GI prophylaxis: Protonix Bowel regimen: Lactulose Code status: Full code LINES/DRAINS/ACCESS: IV access: Right groin triple-lumen catheter Drips: S/p Levophed drip. Not on any pressor/ drip Dawson catheter: Placed on 08/18/2025 DISPOSITION: ICU Patient's status discussed with patient's son(Vane), nurse. Critical care time spent more than 59 minutes, Excluding any procedures. Pending transfer higher level of care pending insurance approval. field worker on board. Case discussed with Dr. Valero Plan discussed with: Patient, Son (Vane ), Other (Nurse) My Orders My Orders Orders - JAYCE HUNT RESIDENT Procedure Category Date Status Time Ergocalciferol PHA 08/21/25 In Process (Vitamin D 50,000 10:15 Chest Portable XY 08/22/25 Logged 07:20 Dietary Evaluation Review Comments: Nutrition Recommendation: 1) Consider Glucerna 240ml BID 2) Consider CCHO 60gm +cardiac diet if PO intake >75% 3) Monitor PO intake, lab values, weight trend, and I/O Expected Outcomes/Goals: To meet >75% estimated needs Lab values to improve Fu 3-5 days Date of Service: Aug 22, 2025 Billing Provider: TORRES VALERO MD Common Visit Codes: [id number] CARE 30-74 MIN JAYCE HUNT RESIDENT Aug 22, 2025 07:55 TORRES VALERO MD Aug 24, 2025 11:23
--- NOTE | 2025-08-22 08:58 | DVH ---
EXAM: XY CHEST PORTABLE Indication: Position of IABP. Technique: Single frontal view of the chest was obtained Comparison: XY CHEST PORTABLE on DOS: 08/21/25, XY CHEST PORTABLE on DOS: 08/20/25, XY CHEST PORTABLE o n DOS: 08/19/25, XY CHEST PORTABLE on DOS: 08/19/25, XY CHEST XRAY 1 VIEW on DOS: 08/18/25 FINDINGS: Lines and Tubes: Intra-aortic balloon measures 7 mm the bottom of the aortic knob. Lungs: Pulmonary vascular congestion. Pleura: Trace bilateral pleural effusions. No pneumothorax. Cardiomediastinal contours: Cardiomegaly. Bones: No acute osseous abnormality. IMPRESSION: Cardiomegaly with trace bilateral pleural effusions and pulmonary vascular congestion
--- NOTE | 2025-08-22 10:57 | DVHPN2 ---
Progress Note Date Seen: Aug 22, 2025 Has the PT tested + for MRSA If YES, has PT been informed?: Yes Medical Necessity Reason Pt with a Central, PICC or Fol: Yes (Right groin catheter) The following are medically ne: Dawson Catheter Subjective Patient reports: No new complaints Review of Systems: Deferred Objective vital signs Vital Sign Date Time Temp Pulse Resp B/P (MAP) Pulse Ox O2 Delivery O2 Flow Rate FiO2 08/22/25 10:13 138/75 08/22/25 10:00 20 100 Nasal Cannula* 2 28 08/22/25 10:00 120 08/22/25 05:15 98.1 98.1 Total Intake and Output 08/21/25 08/21/25 08/22/25 14:59 22:59 06:59 Intake Total 539 ml 188 ml 415 ml Output Total 1310 ml 195 ml 805 ml Balance -771 ml -7 ml -390 ml medications Current Medications Medications Dose Ordered Sig/Letitia Route Start Time Stop Time Status Last Admin Dose Admin Morphine Sulfate 2 mg Q30MP PRN IV 08/18/25 09:45 08/21/25 21:58 2 MG Aspirin 81 mg DAILY PO 08/18/25 10:15 08/21/25 09:18 81 MG Atorvastatin Calcium 40 mg HS PO 08/18/25 22:00 08/21/25 21:58 40 MG Nitroglycerin 0.4 mg Q5MINP PRN SL 08/18/25 11:45 Hydralazine HCl 5 mg PRN IV 08/18/25 22:45 Hold Diagnostic Test (Pha) 1 strip IQ4HR 08/19/25 12:00 08/22/25 08:55 1 STRIP Insulin Human Regular IQ4HR SC 08/19/25 12:00 08/22/25 09:05 4 UNITS Dextrose 50 ml UD PRN IV 08/19/25 08:15 Furosemide 40 mg DAILY IV 08/19/25 18:00 08/22/25 10:13 40 MG Lorazepam 0.5 mg Q6HP PRN IV 08/19/25 09:15 08/19/25 18:01 0.5 MG Lidocaine 1 patch DAILY TOP 08/20/25 10:15 08/20/25 10:43 1 PATCH Albuterol 2.5 mg Q6HR NEB 08/20/25 12:00 08/22/25 07:00 2.5 MG Ipratropium [place] 0.5 mg Q6HR NEB 08/20/25 12:00 08/22/25 07:00 0.5 MG Norepinephrine Bitartrate 250 ml @ 3.75 mls/hr Q24H IV 08/21/25 00:30 08/21/25 00:30 3.75 MLS/HR Ergocalciferol 50,000 unit Q7D PO 08/21/25 10:15 08/21/25 12:16 50,000 UNIT Examination: GENERAL:Normal, HEENT:Normal, NECK:Normal, LUNGS:Normal, CVS:Abnormal, ABDOMEN:Normal, MSK:Abnormal, SKIN:Normal, NEURO:Normal, :Normal laboratory and microbiology Laboratory Tests 08/22/25 02:47 Test 08/22/25 02:47 Range/Units Serum Glucose 135 H 74-106 mg/dL Microbiology Date/Time Source Procedure Growth Status 08/18/25 12:40 Nose MRSA Screen - Final Complete 08/18/25 12:30 Urine - [place] Urine Culture - Final Complete Problem List/Assessment/Plan Problem List/Assessment/Plan 1) Hemodynamically mediated NEGRO/VMN in setting of acute OH 2) hyperkalemia 3) acute OH , currently on IABP support 4) metabolic acidosis 5) history of diabetes Recommendations I will sign off this case please reconsult if needed Nonoliguric Pending higher level of care transfer We will follow closely Renal function better Plan discussed with: Patient Dietary Evaluation Review Comments: Nutrition Recommendation: 1) Consider Glucerna 240ml BID 2) Consider CCHO 60gm +cardiac diet if PO intake >75% 3) Monitor PO intake, lab values, weight trend, and I/O Expected Outcomes/Goals: To meet >75% estimated needs Lab values to improve Fu 3-5 days ROSE TAYLOR MD Aug 22, 2025 10:57
[2025-08-22] MEDS ORDERED: LACTULOSE 20Gm/30ML SOLN PO PRN (12:30)
--- NOTE | 2025-08-22 14:21 | DVHPN2 ---
Progress Note Date Seen: Aug 22, 2025 Has the PT tested + for MRSA If YES, has PT been informed?: Yes Medical Necessity Reason Pt with a Central, PICC or Fol: Yes (Right groin catheter) The following are medically ne: Dawson Catheter Subjective Other Systems: pt doing better iabp removal creat stable Objective vital signs Vital Sign Date Time Temp Pulse Resp B/P (MAP) Pulse Ox O2 Delivery O2 Flow Rate FiO2 08/22/25 13:22 113 24 100 08/22/25 13:16 Nasal Cannula 2.0 08/22/25 13:16 28 08/22/25 13:00 126/81 (96) 08/22/25 12:00 97.7 97.7 Total Intake and Output 08/21/25 08/21/25 08/22/25 15:00 23:00 07:00 Intake Total 539 ml 190 ml 402 ml Output Total 1285 ml 120 ml 880 ml Balance -746 ml 70 ml -478 ml medications Current Medications Medications Dose Ordered Sig/Letitia Route Start Time Stop Time Status Last Admin Dose Admin Morphine Sulfate 2 mg Q30MP PRN IV 08/18/25 09:45 08/22/25 11:44 2 MG Aspirin 81 mg DAILY PO 08/18/25 10:15 08/21/25 09:18 81 MG Atorvastatin Calcium 40 mg HS PO 08/18/25 22:00 08/21/25 21:58 40 MG Nitroglycerin 0.4 mg Q5MINP PRN SL 08/18/25 11:45 Hydralazine HCl 5 mg PRN IV 08/18/25 22:45 Hold Diagnostic Test (Pha) 1 strip IQ4HR 08/19/25 12:00 08/22/25 12:56 1 STRIP Insulin Human Regular IQ4HR SC 08/19/25 12:00 08/22/25 13:00 4 UNITS Dextrose 50 ml UD PRN IV 08/19/25 08:15 Lorazepam 0.5 mg Q6HP PRN IV 08/19/25 09:15 08/19/25 18:01 0.5 MG Lidocaine 1 patch DAILY TOP 08/20/25 10:15 08/20/25 10:43 1 PATCH Albuterol 2.5 mg Q6HR NEB 08/20/25 12:00 08/22/25 13:16 2.5 MG Ipratropium [place] 0.5 mg Q6HR NEB 08/20/25 12:00 08/22/25 13:16 0.5 MG Norepinephrine Bitartrate 250 ml @ 3.75 mls/hr Q24H IV 08/21/25 00:30 08/21/25 00:30 3.75 MLS/HR Ergocalciferol 50,000 unit Q7D PO 08/21/25 10:15 08/21/25 12:16 50,000 UNIT Furosemide 40 mg BID IV 08/22/25 22:00 Potassium Chloride 20 meq BID PO 08/22/25 22:00 Lactulose 30 ml BIDPRN PRN PO 08/22/25 12:30 Examination: GENERAL:Abnormal, HEENT:Abnormal, LUNGS:Abnormal, CVS:Abnormal, ABDOMEN:Abnormal laboratory and microbiology Laboratory Tests 08/22/25 02:47 Test 08/22/25 02:47 Range/Units Serum Glucose 135 H 74-106 mg/dL Microbiology Date/Time Source Procedure Growth Status 08/18/25 12:40 Nose MRSA Screen - Final Complete 08/18/25 12:30 Urine - [place] Urine Culture - Final Complete Problem List/Assessment/Plan Problem List/Assessment/Plan cardio shock_---cont iabp, bp 170s now, consider afterload reduction with hydralazine, LVEF 10%, diuretics 1x a day now, cont heparin nstemi---asa, heparin , start statin, eval at tertiary center for candidacy of revasc tachycardia--HR 110s , shock , watch for arrhythmias IABP REMOVED HEPARIN ON HOLD FOR NOW PT WILL NEED TRANSFER TO ASSESS OPTIONS FOR REVASC WITH CT SURGICAL HEART TEAM WHICH WE DO NOT HAVE RENAL ckd--improved 2.9 to 1.6 , cut back on lasix today , renal consult bicarbonate better , lactate pending PULM on 5L o2 , pulm eval, abg stable GI can give prophy cardiac diet ENDO dc insulin gtt, sliding scale per hospitalist ID [id number], no fevers, defer to primary 60 mins critical care time spent PATIENTS INSURANCE CONTINUES TO BE DIFFICULT I SPOKE TO DR JENNI RICHTER -- THEY KEEP CALLING [facility] AND I TOLD THEM PT NEEDS TO GO TO TERTIARY CARE MULTIPLE TIMES SINCE TUESDAY [facility] BOUT DECLINED PT, PT IS TOO SICK FOR COMMUNITIY PLACE I TOLD DR NASSAR TO TRANSFER PT TO HIS HOSPITAL THEY ARE TRYING TO DICTATE THE PATIENT CARE I WAS TOLD THAT [facility] SPOKE TO HIM AND SAID PT TOO SICK EVEN THOUGH HES SIGNIFICANTLY IMPROVED EACH DAY WITH EXCELLENT PERFUSION AND THEY ([facility]) HAVE NEVER SPOKEN TO ME ANY PT DECLINE OR MORBIDITY/ IS LIKELY FROM THE LACK OF TRANSFER FROM HIS INSURANCE WEVE RECOMMNEDED SINCE HIS ADMIT TO TRANSFER PT [facility] GIVEN LIMITED CAPABILITY OF THIS HOSPITAL, HIS INSURANCE IS AWARE YET IS NOT APPROVING TRANSFER I SPOKE TO THE SON AT LENGTH YESTERDAY EXPLAINING PT HAS DONE VERY WELL HERE AND CONTINUES TO IMPROVE BUT WE ARE DISAPPOINTED HE HASNT BEEN TRANSFERRED Plan discussed with: Patient My Orders My Orders Orders - LISA LEI MD Procedure Category Date Status Time Communication Order ORDERS 08/22/25 Transmitted 04:00 Heparin Per Pharmacy ARIE 08/21/25 In Process Protocol 22:56 Electrocardigram EKG 08/22/25 Logged 09:33 Dietary Evaluation Review Comments: Nutrition Recommendation: 1) Consider Glucerna 240ml BID 2) Consider CCHO 60gm +cardiac diet if PO intake >75% 3) Monitor PO intake, lab values, weight trend, and I/O Expected Outcomes/Goals: To meet >75% estimated needs Lab values to improve Fu 3-5 days Date of Service: Aug 22, 2025 Billing Provider: LISA LEI MD Common Visit Codes: NOT BILLABLE LISA LEI MD Aug 22, 2025 14:21
[2025-08-22] MEDS: MORPHINE SULFATE 4 MG/ML SYR/VIAL ONE (14:25)
[2025-08-22] MEDS: LORazepam 2MG/ML-1ML VIAL IV ONE (14:47)
[2025-08-22] MEDS: DIGOXIN (250MCG/ML) 2 ML AMPULE IV ONE (15:06)
[2025-08-22] MEDS: METOPROLOL TARTRATE 25 MG TAB PO ONE (16:39)
[2025-08-22] MEDS: FUROSEMIDE 40 MG/4 ML VIAL IV ONE (17:30)
[2025-08-22] MEDS: FUROSEMIDE 40 MG/4 ML VIAL IV SCH (21:09)
[2025-08-22] MEDS: POTASSIUM CHL 20 Meq TABLET PO SCH (21:10)
[2025-08-22 22:42] LABS: Potassium 3.9 mmol/L (3.5-5.1)
[2025-08-22] MEDS: MELATONIN 5 MG TAB PO ONE (22:46)
[2025-08-22 22:49] LABS: Magnesium 2.4 mg/dL (1.6-2.6)
[2025-08-23] VITALS (30 sets, daily range): BP systolic 83–122; BP diastolic 62–84; PULSE 118–135; RESP 18–31; TEMP 97.2–98; O2SAT 71–98
[2025-08-23 04:14] LABS: Hematocrit 44.2 % (41.0-53.0); Hemoglobin 15.5 g/dL (13.5-17.5); Mean Corpuscular Hemoglobin 33.6 pg (28.0-32.0); Mean Corpuscular Volume 95.9 fL (80.0-100.0); Nucleated Red Blood Cells % 0.1 %
[2025-08-23 04:38] LABS: Albumin 3.6 g/dL (3.2-4.8); Alkaline Phosphatase 68 U/L (46-116); Anion Gap 14 (5-15); BUN/Creatinine Ratio 30.2 (10.0-20.0); Carbon Dioxide 26 mmol/L (20-31); Chloride 99 mmol/L (98-107); Magnesium 2.5 mg/dL (1.6-2.6); Potassium 4.0 mmol/L (3.5-5.1); Sodium 139 mmol/L (136-145); Total Protein 6.6 g/dL (5.7-8.2)
[2025-08-23 04:49] LABS: Alanine Aminotransferase 142 U/L (7-40); Bilirubin, Total 1.6 mg/dL (0.2-1.0); Blood Urea Nitrogen 42 mg/dL (9-23); Calcium 8.6 mg/dL (8.7-10.4); Glucose 120 mg/dL (74-106)
--- NOTE | 2025-08-23 09:31 | ECG ---
[facility] Test Date: 2025-08-22 Test Time: 09:38:46 Pat Name: BRIGIDA SHAW Department: ICU Room: [address] [place] [address] Gender: M Gopherman: HALLIE : 1960 Requested By: LISA LEI Order Number: [id number] Reading MD: Cedric Cordoba Measurements Intervals [place] Rate: 113 P: 44 NC: 169 QRS: -70 QRSD: 139 T: 88 QT: 343 QTc: 471 Interpretive Statements Sinus tachycardia Nonspecific IVCD with LAD Probable anterolateral infarct, acute Electronically Signed On 08-23-2025 12:20:31 PDT by Cedric Cordoba Please click the below link to view image of tracing.
--- NOTE | 2025-08-23 09:31 | ECG ---
[facility] Test Date: 2025-08-22 Test Time: 15:45:38 Pat Name: BRIGIDA SHAW Department: icu Room: [address] [place] [address] Gender: M Banker Mason: samy : 1960 Requested By: MICHELLE VIGIL Order Number: [id number] Reading MD: Cedric Cordoba Measurements Intervals [place] Rate: 132 P: 14 MI: 132 QRS: -62 QRSD: 154 T: 71 QT: 385 QTc: 571 Interpretive Statements Sinus tachycardia Probable left atrial enlargement Nonspecific IVCD with LAD Probable anterolateral infarct, acute Electronically Signed On 08-23-2025 12:20:37 PDT by Cedric Cordoba Please click the below link to view image of tracing.
--- NOTE | 2025-08-23 09:32 | ECG ---
[facility] Test Date: 2025-08-22 Test Time: 15:46:24 Pat Name: BRIGIDA SHAW Department: icu Room: [address] [place] [address] Gender: M Financial Operations Clerk: samy : 1960 Requested By: MICHELLE VIGIL Order Number: [id number] Reading MD: Cedric Cordoba Measurements Intervals [place] Rate: 131 P: 0 MO: 0 QRS: -62 QRSD: 151 T: 74 QT: 356 QTc: 526 Interpretive Statements Junctional tachycardia Nonspecific IVCD with LAD Probable anterolateral infarct, acute Electronically Signed On 08-23-2025 12:20:39 PDT by Cedric Cordoba Please click the below link to view image of tracing.
[2025-08-23] MEDS ORDERED: ALPRAZolam 0.5 MG TAB PO PRN (10:00)
--- NOTE | 2025-08-23 14:52 | DVHPNRES ---
Progress Note Date Seen: Aug 23, 2025 Resident Creating Document: JAYCE HUNT RESIDENT Has the PT tested + for MRSA If YES, has PT been informed?: Yes Medical Necessity Reason Pt with a Central, PICC or Fol: Yes (Right groin catheter) The following are medically ne: Central Line, Dawson Catheter Subjective Review of Systems A 65-year-old Nepali-speaking man with a past medical history including diabetes mellitus and hypertension who presents to ED with concern for cardiac symptoms . 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 Despite attempting to rest at home, his symptoms persisted. Pt remained mostly in bed throughout the day and began developing shortness of breath around the same time (11 AM). By 10 PM, he experienced increased difficulty breathing. He was brought in for evaluation 08/18/2025 around 5 AM. Patient history of ICU admission 3/4 years ago possible sting bite.In the ED, the patient was noted to be hypotensive (BP 92/69) and tachycardic. Initial labs showed WBC 13.8, potassium 5.6, creatinine 2.90, glucose 339, a markedly elevated troponin >25,000 and BS is elevated at 356. Past Medical History: DM2, hypertension. Prior ICU admission with intubation 34 years ago for an unclear condition (possibly after a bee sting, per son) Past Surgical History: None Allergies: No known drug allergies. Family History: Positive for heart disease; multiple relatives including his siblings and grandmother who had heart attacks. Social History: Nonsmoker. No alcohol or illicit drug use. HOME MEDICATION: metformin, simvastatin 08/20 : Seen and evaluated in bedside today. Patient medically stable transferred to higher level of care secondary to critical coronary artery disease. bible worker on board. Heparin drip and intra-aortic balloon pump with monitor in place. Caution for thrombocytopenia. 08/21: Seen and evaluated in bedside. Patient denies any acute distress like chest pain ,shortness of breaths. Count heparin drip watch for thrombocytopenia. Pending transfer higher level of care the patient possible CABG. 08/22: Patient seen and evaluated in bedside today. Waiting for transfer higher level of care presumed need CABG. Due to insurance issue, waiting call from facilities. As per Cardiology, hold heparin for now possible removal of intra-aortic balloon pump. 08/23: Seen and evaluated today. Lab shows platelet count elevated after stopping heparin. Right groin catheter site dry and no signs symptoms of inflammation. Pending transfer higher level of care , patient will be benefitted for CABG procedure. Objective vital signs Vital Sign Date Time Temp Pulse Resp B/P (MAP) Pulse Ox O2 Delivery O2 Flow Rate FiO2 08/23/25 13:45 127 25 97 08/23/25 13:39 Nasal Cannula* 4 36 08/23/25 11:00 105/79 (88) Arterial Line 08/23/25 08:00 97.2 97.2 Total Intake and Output 08/22/25 08/22/25 08/23/25 15:00 23:00 07:00 Intake Total 476 ml 540 ml 240 ml Output Total 1175 ml 2725 ml 800 ml Balance -699 ml -2185 ml -560 ml medications Current Medications Medications Dose Ordered Sig/Letitia Route Start Time Stop Time Status Last Admin Dose Admin Morphine Sulfate 2 mg Q30MP PRN IV 08/18/25 09:45 08/23/25 10:06 2 MG Aspirin 81 mg DAILY PO 08/18/25 10:15 08/23/25 10:07 81 MG Atorvastatin Calcium 40 mg HS PO 08/18/25 22:00 08/22/25 21:09 40 MG Nitroglycerin 0.4 mg Q5MINP PRN SL 08/18/25 11:45 Hydralazine HCl 5 mg PRN IV 08/18/25 22:45 Hold Diagnostic Test (Pha) 1 strip IQ4HR 08/19/25 12:00 08/23/25 11:43 1 STRIP Insulin Human Regular IQ4HR SC 08/19/25 12:00 08/23/25 12:09 12 UNITS Dextrose 50 ml UD PRN IV 08/19/25 08:15 Lorazepam 0.5 mg Q6HP PRN IV 08/19/25 09:15 08/22/25 20:10 0.5 MG Lidocaine 1 patch DAILY TOP 08/20/25 10:15 08/23/25 10:05 1 PATCH Albuterol 2.5 mg Q6HR NEB 08/20/25 12:00 08/23/25 13:39 2.5 MG Ipratropium [place] 0.5 mg Q6HR NEB 08/20/25 12:00 08/23/25 13:39 0.5 MG Norepinephrine Bitartrate 250 ml @ 3.75 mls/hr Q24H IV 08/21/25 00:30 08/21/25 00:30 3.75 MLS/HR Ergocalciferol 50,000 unit Q7D PO 08/21/25 10:15 08/21/25 12:16 50,000 UNIT Furosemide 40 mg BID IV 08/22/25 22:00 08/23/25 10:07 40 MG Potassium Chloride 20 meq BID PO 08/22/25 22:00 08/23/25 10:07 20 MEQ Lactulose 30 ml BIDPRN PRN PO 08/22/25 12:30 Alprazolam 0.5 mg BID PRN PO 08/23/25 10:00 Enteral Nutritional Formula 240 ml BIDWM PO 08/23/25 18:00 UNV Examination Constitutional: No: Fever, Chills, right groin triple-lumen catheter Eyes: No: Pain, Vision change, ENT: No: Ear pain, Ear discharge, Nose pain, Nose discharge, Nose congestion Respiratory: Bilateral air entry similar on both lung, no Wheezing, Hemoptysis, Cardiovascular: No: Chest Pain, Palpitations, Orthopnea, Paroxysmal Noc. Dyspnea, Edema Gastrointestinal: Nontender abdomen on palpation, bowel sounds present Genitourinary: No Dysuria, No Frequency, Jolynn catheter in place Musculoskeletal: Triple catheter placed on right groin Neurological: No Weakness, Numbness, Incoordination, no Change in speech laboratory and microbiology Laboratory Tests 08/23/25 03:35 Test 08/23/25 03:35 Range/Units Serum Glucose 120 H 74-106 mg/dL Microbiology Date/Time Source Procedure Growth Status 08/18/25 12:40 Nose MRSA Screen - Final Complete 08/18/25 12:30 Urine - [place] Urine Culture - Final Complete Problem List/Assessment/Plan Problem List/Assessment/Plan A 65-year-old Nepali-speaking man with a past medical history including diabetes mellitus and hypertension who presents to ED with concern for cardiac symptoms SOB and chest compression. .In the ED, the patient was noted to be hypotensive (BP 92/69) and tachycardic. Initial labs showed WBC 13.8, potassium 5.6, creatinine 2.90, glucose 339, a markedly elevated troponin >25,000 and BS is elevated at 356. 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 Cardiology consulted and patient went angiogram on 08/18/2025 showed critical multiple critical coronary artery disease, placement intra- aortic balloon pump and recommended patient need to transferred higher level of care. NEUROLOGY Patient AO x4 No focal weakness noted CARDIOVASCULAR: NSTEMI Critical multivessel coronary artery disease Placement intra-aortic balloon pump Acute systolic heart failure, EF 10% CAD with multivessel disease Cardiomegaly * Troponin > 71289 on admission * BNP 963.53 * Angiogram done on 08/10/2025 revealed critical multi vessel coronary artery disease. * CXR-show cardiomegaly * Off Levophed, hemodynamically stable * IABP placed on 08/18/2025 removed home on 08/22/2025 * Plan: atorvastatin ,aspirin, Lasix, morphine as needed for chest pain * Patient having acceptance in [facility] and confirmed with Dr. Trudy Deleon, waiting bed availability. PULMONARY: Acute hypoxic respiratory failure Dependence on supplemental oxygen Pulmonary edema * X-ray chest on admission-show pulmonary edema * Plan: Supplemental oxygen, currently on 2 L with Oxymizer, titrate to keep oxygen saturation >92%, breathing treatment. GASTROINTESTINAL: Transaminitis Hepatic steatosis Constipation * US liver-borderline dilated 7 mm common duct, diffuse hepatic steatosis * Plan: Monitor liver function, pantoprazole , lactulose. GENITOURINARY: NEGRO secondary to hemodynamically mediated/VMN Hypocalcemia Hyperkalemia * Dawson catheter * Acute complicated cystitis * Avoid nephrotoxic drugs * Plan: Renal function test, electrolytes HEMATOLOGY: Leukocytosis possibly reactive/myocardial injury Thrombocytopenia * No fever or any signs symptoms of infection Plan: CBC daily Monitor for any signs symptoms of bleeding. METABOLIC: Diabetic ketoacidosis Diabetes mellitus type 2 Metabolic acidosis Lactic acidosis Vitamin-D deficiency Hypocalcemia Morbid obesity * Beta hydroxybutyric acid 0.410 on admission * AVC3F-9.9 * Avoid sugar and sugar containing food * Plan: ISS, monitor blood sugar * Continue vitamin-D 86625 units p.o. Q weekly INFECTIOUS DISEASE: SIRS (tachy,leukocytosis) * Plan: Daily CBC MUSCULOSKELETAL * Patient complained low-back pain * Plan :lidocaine patch DIET: Cardiac DVT prophylax: SCD GI prophylaxis: Protonix Bowel regimen: Lactulose Code status: Full code LINES/DRAINS/ACCESS: IV access: Right groin triple-lumen catheter Drips: S/p Levophed drip. Not on any pressor/ drip Dawson catheter: Placed on 08/18/2025 DISPOSITION: DUSTY Patient's status discussed with patient's son(Liz-WILMAN), nurse. Critical care time spent more than 53 minutes, Excluding any procedures. Pending transfer higher level of care .bible worker on board. Case discussed with Dr. Douglas Plan discussed with: Patient, Other (Nurse) My Orders My Orders Orders - JAYCE HUNT Procedure Category Date Status Time Alprazolam Tablet PHA 08/23/25 In Process (Xanax Tablet) 10:00 Discharge DISCHARGE 08/23/25 Transmitted 13:05 Imaging Transfer ORDERS 08/23/25 Transmitted Request 13:36 Nutritional PHA 08/23/25 Logged Supplements (Glucerna 18:00 Dietary Evaluation Review Comments: Nutrition Recommendation: 1) Consider Glucerna 240ml BID 2) Consider CCHO 60gm +cardiac diet if PO intake >75% 3) Monitor PO intake, lab values, weight trend, and I/O Expected Outcomes/Goals: To meet >75% estimated needs Lab values to improve Fu 3-5 days JAYCE HUNT RESIDENT Aug 23, 2025 14:52
[2025-08-23] MEDS ORDERED: Glucerna Carbsteady SHAKE Vanilla 8oz PO SCH (18:00)
== END 2025-08-23 14:41 | disposition short-term general hospital (02) | DRG 270 ==
LOC: ER 05:54 → EDBD 05:54 → OVERFLOW 09:25 → ER 09:39 → ICU WEST 11:20 → DOU 08-23 06:13
PROVIDERS: ATTEND Internal Medicine Pulmonary Disease
PROC: 5A02210 Assistance with Cardiac Output using Balloon Pump, Continuous (ICD-10-PCS; principal; 2025-08-18)
PROC: 4A023N7 Measurement of Cardiac Sampling and Pressure, Left Heart, Percutaneous Approach (ICD-10-PCS; 2025-08-18)
PROC: B211YZZ Fluoroscopy of Multiple Coronary Arteries using Other Contrast (ICD-10-PCS; 2025-08-18)
PROC: 5A09357 Assistance with Respiratory Ventilation, Less than 24 Consecutive Hours, Continuous Positive Airway Pressure (ICD-10-PCS; 2025-08-22)
DX: I21.4 Non-ST elevation (NSTEMI) myocardial infarction (principal); I50.23 Acute on chronic systolic (congestive) heart failure; R57.0 Cardiogenic shock; N17.0 Acute kidney failure with tubular necrosis; J96.01 Acute respiratory failure with hypoxia; I25.10 Atherosclerotic heart disease of native coronary artery without angina pectoris; I45.9 Conduction disorder, unspecified; E87.5 Hyperkalemia; I11.0 Hypertensive heart disease with heart failure; D72.829 Elevated white blood cell count, unspecified; E78.5 Hyperlipidemia, unspecified; E66.01 Morbid (severe) obesity due to excess calories; Z82.49 Family history of ischemic heart disease and other diseases of the circulatory system; Z99.81 Dependence on supplemental oxygen; Z79.899 Other long term (current) drug therapy; Z68.32 Body mass index [BMI] 32.0-32.9, adult
CPT/HCPCS: 36415; 36600; 71045; 76705; 76775; 80048; 80053; 80061; 81001; 82010; 82306; 82570; 82607; 82805; 82962; 83036; 83605; 83615; 83735; 83880; 83930; 84100; 84132; 84300; 84443; 84484; 85025; 85379; 85610; 85730; 86803; 86850; 86900; 86901; 87081; 87086; 87340; 93005; 93306; 94640; 94660; 96365; 96375; 99152; 99291; 99292; G0378; J1815; J2250; Q9967